=== PATIENT | female | born 1940 | race Caucasian/White ===

== ENCOUNTER 2017-03-05 12:58 | Emergency (ER) | payer MEDICARE, OTHER ==
[~2017-03-05] VITALS: Ht 175.2 cm; Wt 88.0 kg
--- NOTE | ~2017-03-05 | EKG ---
[place], [place] ELECTROCARDIOGRAM REPORT NAME: NESHA DOUGHERTY UNIT #: [id number] ROOM: DOCTOR: LINDA WILKINS,ROSALINDA BIRTHDATE: [birth year] DOS: 03/05/2017 TIME: 1339 hours. IMPRESSION: 1. Sinus rhythm. 2. Sinus tachycardia. 3. Nonspecific ST-T changes. 4. Normal QT interval. ROSALINDA MCKEON MD CM:EKGRPT:ELECTROCARDIOGRAM REPORT [id number] ROSALINDA MCKEON MD
[~2017-03-05 12:58] MED LIST: ACCOLATE20 MG PO; ADVAIR 100/501 EA INH; ADVAIR 500/501 E1 INH; ALBUTEROL SULFAT3 M2 INH; BACTRIM DS 8001 TA1 PO; BENZTROPINE MESY2 M1 PO; CARDIZEM CD120 M2 PO; CARTIA XT120 MG PO; CEFTIN500 M1 PO; CLEOCIN HCL300 MG PO; COUMADIN5 M2 PO; ELIQUIS5 M1 PO; GLYBURIDE AND M1 TA1 PO; GLYBURIDE AND M1 TA2 PO; HYDROCHLOROTHIA25 M1 PO; HYDROCODONE BIT1 T11 PO; IPRATROPIUM BR2.5 ML IH; KEFLEX 500 MG E2 CAP PO; LANTUS SOLOS100 U/M1 SC; LEVAQUIN750 M1 PO; LISINOPRIL10 M1 PO; LISINOPRIL20 MG PO; MUCINEX ER600 MG PO; NEBULIZER; NORVASC10 MG PO; PRAVASTATIN SOD40 MG PO; PREDNISONE10 MG PO; PREDNISONE5 MG PO; TESSALON PERLE100 MG PO; ZAFIRLUKAST20 M2 PO; ZITHROMAX250 MG PO; Zestril,Prinivi40 MG PO
[2017-03-05 13:31] LABS: BASO % 0.2 % (0.0-1.0); EOS % 0.7 % (1.0-4.0); HEMATOCRIT 37.1 % (37.0-47.0); HEMOGLOBIN 12.6 g/dl (12.0-16.0); LYMPH # 0.6 10*3/uL (1.3-4.4); LYMPH % 9.9 % (27.0-41.0); MEAN CELL VOLUME 85.9 fl (81.0-99.0); MEAN CORPUSCULAR HGB 29.2 pg (27.0-31.0); MEAN PLATELET VOLUME 9.7 fl (9.6-12.3); MONO # 0.8 10*3/uL (0.1-1.0); NEUT # 4.4 10*3/uL (2.3-7.9); PLATELET COUNT AUTOMATED 197 10*3/uL (130-400); RED BLOOD COUNT 4.32 10*6/uL (4.10-5.10); RED CELL DISTRI WIDTH 14.4 % (0-14.5); WHITE BLOOD COUNT 5.9 10*3/uL (4.8-10.8)
[2017-03-05 13:45] LABS: BUN 12 mg/dl (7-24); CHLORIDE 98 mmol/L (98-107); CREATININE 0.85 mg/dL (0.55-1.02); POTASSIUM 3.5 mmol/L (3.5-5.1); SODIUM 133 mmol/L (136-145)
[2017-03-05] MEDS ORDERED: ZOFRAN ODT4 MG SL (14:01)
== END 2017-03-05 14:26 | disposition home or self-care (01) ==
LOC: ED 12:58
PROVIDERS: Emergency Medicine
DX: E87.1 Hypo-osmolality and hyponatremia (principal); R05 Cough; R11.0 Nausea; E11.65 Type 2 diabetes mellitus with hyperglycemia; I48.91 Unspecified atrial fibrillation; J45.909 Unspecified asthma, uncomplicated; E78.5 Hyperlipidemia, unspecified; I10 Essential (primary) hypertension; Z98.890 Other specified postprocedural states; Z98.42 Cataract extraction status, left eye; Z98.41 Cataract extraction status, right eye; Z96.642 Presence of left artificial hip joint; Z87.01 Personal history of pneumonia (recurrent); Z79.899 Other long term (current) drug therapy

== ENCOUNTER 2017-03-21 11:47 | Inpatient (IN) | payer MEDICARE, OTHER ==
[~2017-03-21] VITALS: Ht 175.2 cm; Wt 87.1 kg
[2017-03-21] VITALS (7 sets, daily range): BP systolic 148–162; BP diastolic 61–93
--- NOTE | ~2017-03-21 | PR ---
[place], [place] PROGRESS NOTE NAME: NESHA DOUGHERTY UNIT #: [id number] ROOM: 408 DOCTOR: LEEROY CHU MD BIRTHDATE: [birth year] DOS: 03/23/2017 SUBJECTIVE: She has been noted reduction of the shortness of breath and coughing significantly after the bronchoscopy from yesterday. She has been comfortably resting on the bed at this time. Denies symptoms of acute chest pain. Denies symptoms of acute hemoptysis. OBJECTIVE: VITAL SIGNS: Normal temperature, respiratory rate 20, heart rate 84, blood pressure 118/50. Pulse oxygen saturation on room air 93% saturation. HEENT: No acute change. NECK: Supple. CARDIOVASCULAR: S1, S2 audible. LUNGS: The patient was noted without any crackles. Scattered expiratory wheezing. ABDOMEN: Soft, flat, nontender. Bowel sounds present. EXTREMITIES: Without any edema. LABORATORY DATA: CBC today - WBC count 21.5. The CMP this morning - BUN 29, glucose 386. Sodium 130. Culture of the bronchial washing preliminary noted as normal ashely. The Gram-stain from yesterday was reviewed as many white blood cells, moderate gram-positive cocci in pairs and chains, few gram-negative bacilli. IMPRESSION: 1. The patient who was being currently noted with severe impaction of mucus plug with acute exacerbation of bronchial asthma with reduction in respiratory symptom noted from yesterday. 2. Leukocytosis, steroid response. PLAN OF MANAGEMENT: Continuation of the patient's current plan of therapy with bronchodilators and oxygen supplementation. Reduction in Solu-Medrol dose today to 40 mg b.i.d. as well. Continuation of other treatment and plan of management because of severe illness noted on admission. The bronchial washing cultures will be monitored until tomorrow prior to making discharge disposition. [place], [place] PROGRESS NOTE NAME: NESHA DOUGHERTY UNIT #: [id number] ROOM: 408 DOCTOR: LEEROY CHU MD BIRTHDATE: [birth year] LEEROY NICOLE MD CM:PNTRANS [id number] LEEROY ANDRADE MD 03/24/17 0007 interface
--- NOTE | ~2017-03-21 | PROC NOTE ---
[place], [place] PROCEDURE NOTE NAME: NESHA DOUGHERTY UNIT #: [id number] ROOM: 408 DOCTOR: BONNIE ANDRADE MD,LEEROY BIRTHDATE: [birth year] DOS: 03/22/2017 PRIMARY CARE AND ATTENDING: Hospitalist services. PREOPERATIVE DIAGNOSES: The patient has severe cough with multiple impacted mucus plug in the airway was suspected in the CT scan and clinically. POSTOPERATIVE DIAGNOSES: Removal of multiple plugs of mucus in the endobronchial tree, major in the lower lungs than the other parts of the bronchial subsegments. PROCEDURE DESCRIPTION: Informed consent was obtained for the patient. She was brought to the OR and placed in supine position. Conscious sedation was administered by the Anesthesia Department. After achieving proper sedation, airway introduced into the mouth. Bronchoscope advanced to the airway into laryngeal area. Epiglottis and vocal cords were seen. Vocal cords were seen yellowish in color and moving symmetrically with movements. The bronchoscope advanced to vocal cord and tracheal lumen. Tracheal lumen noted with moderate amount of thick mucus secretion with some purulent secretion mixture that was suctioned out to the lita level. Right and left endobronchial tree was systematically examined. Large plugs and mucus were present in the lower lobe of endobronchial tree and moderate size mucus plugs were present. Remaining endobronchial tree with clear secretions that were suctioned out clear with help of normal saline wash. All the mucus plugs were extracted as well. The patient tolerated the procedure very well without any difficulty. Postoperative findings will be discussed with the patient once the patient recovers from the effects of acute sedation. LEEROY NICOLE MD CM:PROCNOTE:PROCEDURE NOTE [id number] LEEROY ANDRADE MD
--- NOTE | ~2017-03-21 | PR ---
[place], [place] PROGRESS NOTE NAME: NESHA DOUGHERTY UNIT #: [id number] ROOM: 408 DOCTOR: BONNIE ANDRADE MD,LEEROY BIRTHDATE: [birth year] DOS: 03/24/2017 SUBJECTIVE: The patient was noted to be comfortable at this time without any acute distress. Coughing continued to resolve, not completely improved, but markedly decreased. There were no symptoms of acute chest pain. Shortness of breath was mild with exertion, but overall improvement was noted. There were no symptoms of wheezing described. There were no symptoms of chest pain at this time. OBJECTIVE: VITAL SIGNS: For the patient, which were recorded showed the temperature as normal. The respiratory rate recorded as 20, heart rate 78, and blood pressure 136/57. HEENT: Shows head was atraumatic. Eyes nonicterus. NECK: Supple. CARDIOVASCULAR SYSTEM: S1 and S2 is audible. LUNGS: Without any wheezing or crackles at present time. ABDOMEN: Soft and nontender. EXTREMITIES: Without any pedal edema, clubbing, or cyanosis. IMPRESSION: Resolving acute respiratory status with improvement significantly after bronchoscopy and removing mucus plug for exacerbation of bronchial asthma. Culture of the bronchial washing was essentially noted as normal ashely. PLAN OF MANAGEMENT: The patient will be discharged home today on oral antibiotic Zithromax, which has been already sent to the pharmacy and use of tapering prednisone. Outpatient followup recommended in 2 week post-discharge. Further assessment in the office. She was advised to continue previous all home medications without any changes. LEEROY NICOLE MD CM:PNTRANS [id number] LEEROY ANDRADE MD 03/24/17 1837 interface
--- NOTE | ~2017-03-21 | CON ---
[place], [place] REPORT OF CONSULTATION NAME[facility]OUGHERTY [id number] UNIT #: [id number] ROOM: 408 DOCTOR: LEEROY CHU MD BIRTHDATE: [birth year] DOS: 03/22/2017 PULMONARY CONSULTATION, EVALUATION, AND MANAGEMENT CONSULTATION REQUESTED BY: Hospitalist services. REASON FOR CONSULTATION: For assessment of current abnormal respiratory symptom. HISTORY OF PRESENT ILLNESS: A 77-year-old white female who has been known to me from the past. She was seen in my office yesterday, as the patient developed symptoms of increased shortness of breath, which has been getting progressively worse. The symptoms of shortness of breath has been noted severe for the patient and occurring at rest. She was also noted excessive chest congestion, unable to expectorate sputum. She does complain of tightness in the chest, but there was no chest pain. She does have symptoms of wheezing at times as well. The wheezing occurs for this patient with exertion. As the patient was seen, she was noted significant tachypneic and with shortness of breath with mild wheezing. The patient noted with chest auscultation, sent to the Emergency Room for further assessment of the current symptoms, especially to rule out pulmonary embolism. She was seen in the Emergency Room yesterday. CTA of the chest of the patient was done that did rule out the possibility of pulmonary embolism and mucous impaction of the endobronchial tree was suspected. The patient has been currently noted n.p.o. past midnight for bronchoscopy that was planned to be done today. REVIEW OF SYSTEMS: CONSTITUTIONAL: She does report symptoms of progressive fatigue and tiredness. There were symptoms of fever or chills reported. EYES: Denies any burning, redness, or tenderness. EARS, NOSE, AND THROAT SYMPTOMS: No sore throat, hoarseness, otalgia, postnasal drainage, or epistaxis. CARDIOVASCULAR: Denies angina pain, edema, or pain of the lower extremity. GASTROINTESTINAL: Denies dysphagia, nausea, vomiting, diarrhea, abdominal pain, hematemesis, melena, or abnormal weight loss. GENITOURINARY: No dysuria, suprapubic pain, or hematuria. MUSCULOSKELETAL: Denies any acute joint pain, redness, or tenderness. SKIN: No lesions or rashes. Remaining systems were reviewed with the patient, they were noted all negative. PAST MEDICAL HISTORY: 1. The patient was known with history of uncomplicated severe persistent bronchial asthma. 2. Hypercholesterolemia. 3. Type 2 diabetes mellitus. 4. Essential hypertension. PAST SURGICAL HISTORY: 1. Left hip replacement. 2. Colonoscopy. [place], [place] REPORT OF CONSULTATION NAME: NESHA DOUGHERTY UNIT #: [id number] ROOM: [facility] DOCTOR: NASRA CHU MDM BIRTHDATE: [birth year] 3. Bilateral cataract extraction, lens implantation. 4. Therapeutic bronchoscopy done in 2016. SOCIAL HISTORY: She was noted nonsmoker lifetime, currently , has one child. Denies history of alcohol use or illicit drug use. FAMILY HISTORY: Father at the age of 60 years of accident. Mother at the age of 50 years from complication of cancer in the bones. MEDICATIONS: Current administered medications were noted as use of trazodone, simvastatin, vitamin D, Cardizem-CD, zafirlukast, hydrochlorothiazide, lisinopril, Lovenox for DVT prophylaxis, Solu-Medrol 60 mg q.8 hours, doxycycline for this patient intravenously, and IV Rocephin. The patient was also getting some other p.r.n. medications. DRUG ALLERGIES: Noted as no known drug allergies. PHYSICAL EXAMINATION: GENERAL: A 77-year-old white female patient, who has been noted currently awake and alert without any acute distress. VITAL SIGNS: The patient's height was recorded by the nursing staff as 5 feet 9 inches and weight of 192 pounds. The vital signs of the patient, which has been recorded showed the temperature noted normal in the last 24 hours, respiratory rate 18-17, heart rate of 83 and 103 noted on admission. The blood pressure of the patient noted as 172/90 on admission and this morning was noted as 138/66. Pulse oxygen saturation for the patient on room air was 93% saturation. HEENT: Examination of the head was atraumatic. Eyes nonicterus. NECK: Supple. CARDIOVASCULAR: S1, S2 audible. LUNGS: The patient was noted with moderate reduction of the breath sounds in the lungs were noted bilaterally with expiratory wheezing, moderate. There were no crackles. ABDOMEN: Flat, soft, and nontender. Bowel sounds present. EXTREMITIES: The patient has no edema. MUSCULOSKELETAL: No deformities. SKIN: No lesions or rashes. CENTRAL NERVOUS SYSTEM: Cranial nerves 2-12 intact. No focal deficit. LABORATORY DATA: Last PT and PTT yesterday normal. CBC of the patient on 03/21/2017, WBC count 12.7, remaining CBC was completely normal. The troponin of the patient yesterday were noted as normal, in addition, 2 sets were normal as well yesterday. CBC this morning, WBC count 14,000, hemoglobin 11.2, hematocrit 33.7, and normal platelet count. CMP of the patient this morning, glucose 375, BUN and creatinine normal, and sodium 134. The chest x-ray of the patient that was done yesterday was noted with evidence of a possibility of infiltration in the left lower lobe. CT of the chest of the patient that was done was personally reviewed shows a significant mucus impaction noted in the lower lobe endobronchial tree subsegment with mucocele formation in the right and the lower lobe. The finding was noted much greater in the left lower than the right lower lobe. There was no abnormal pulmonary nodules of the patient [place], [place] REPORT OF CONSULTATION NAME: NESHA DOUGHERTY UNIT #: [id number] ROOM: 408 [facility] [birth year] noted or any acute infiltration. IMPRESSION: 1. The patient who has been currently admitted to the hospital noted with acute exacerbation of bronchial asthma with severe coughing and mucus impaction of this patient noted. There was no evidence of acute pneumonia. Because of severe mucus impaction for this patient with mucus, possibility of allergic bronchopulmonary aspergillosis would be considered in the differential diagnosis. 2. The patient with uncontrolled diabetes mellitus with the use of current corticosteroids and history of type 2 diabetes mellitus as well. History of essential hypertension and other medical illnesses as noted. PLAN OF TREATMENT: Proceed with bronchoscopy as discussed with the patient. She is already n.p.o. past midnight. The bronchodilator will be continued on current dose of corticosteroids, reduction will be started; hopefully, after the bronchoscopy. Bronchoscopy will help to remove the current impaction of the mucus plug and improving the current mucocele formation of the patient in the lung and endobronchial tree. Other supportive therapy and plan of management. Oxygen supplementation in case of oxygen desaturation. Other supportive therapy, plan of management, and care plan. Additional treatment continued to be give the patient based on progression of her illness. LEEROY NICOLE MD CM:CONSTR:REPORT OF CONSULTATION 1205 03/23/17 0009 interface
[~2017-03-21 11:47] MED LIST changes: +ZOFRAN ODT4 MG SL
[2017-03-21] MEDS ORDERED: PROAIR HFA8.5 GM INH (12:26)
[2017-03-21 12:53] LABS: HEMATOCRIT 36.6 % (37.0-47.0); MEAN CELL VOLUME 88.8 fl (81.0-99.0); MEAN CORPUSCULAR HGB 29.1 pg (27.0-31.0); MEAN CORPUSCULAR HGB CONC 32.8 g/dl (33.0-37.0); MEAN PLATELET VOLUME 9.5 fl (9.6-12.3); PLATELET COUNT AUTOMATED 281 10*3/uL (130-400); RED BLOOD COUNT 4.12 10*6/uL (4.10-5.10); RED CELL DISTRI WIDTH 14.6 % (0-14.5); WHITE BLOOD COUNT 12.7 10*3/uL (4.8-10.8)
[2017-03-21 13:09] LABS: ACT PARTIAL THROMBO TIME 20.2 SECONDS (20.8-31.5); INTERNATIONAL NORM RATIO 0.9 (2.0-3.5)
[2017-03-21 13:10] LABS: TOTAL CELLS COUNTED 100 #CELLS
[2017-03-21 13:11] LABS: ALBUMIN 3.9 gm/dl (3.1-4.5); ALKALINE PHOSPHATASE 91 U/L (45-117); BUN 19 mg/dl (7-24); CHLORIDE 105 mmol/L (98-107); CREATININE 0.95 mg/dL (0.55-1.02); POTASSIUM 3.6 mmol/L (3.5-5.1); SGOT/AST 9 IU/L (3-35); SGPT/ALT 21 U/L (12-78); SODIUM 139 mmol/L (136-145); TOTAL PROTEIN 6.8 gm/dL (6.4-8.2)
[2017-03-21 13:12] LABS: TROPONIN I < 0.015 ng/ml (<0.045)
[2017-03-21 13:13] LABS: PLATELET SUFFICIENCY NORMAL (NORMAL)
[2017-03-21] MEDS ORDERED: OSTERA TABLET1 EACH PO (15:58)
[2017-03-21] MEDS ORDERED: TRAZODONE50 MG PO (15:58)
[2017-03-22] VITALS (9 sets, daily range): BP systolic 110–158; BP diastolic 53–82
[2017-03-22 06:46] LABS: HEMATOCRIT 33.7 % (37.0-47.0); HEMOGLOBIN 11.2 g/dl (12.0-16.0); MEAN CELL VOLUME 88.5 fl (81.0-99.0); MEAN CORPUSCULAR HGB 29.4 pg (27.0-31.0); MEAN CORPUSCULAR HGB CONC 33.2 g/dl (33.0-37.0); MEAN PLATELET VOLUME 9.7 fl (9.6-12.3); PLATELET COUNT AUTOMATED 232 10*3/uL (130-400); RED BLOOD COUNT 3.81 10*6/uL (4.10-5.10); RED CELL DISTRI WIDTH 14.5 % (0-14.5)
[2017-03-22 06:59] LABS: ALBUMIN 3.5 gm/dl (3.1-4.5); ALKALINE PHOSPHATASE 85 U/L (45-117); BUN 22 mg/dl (7-24); CHLORIDE 101 mmol/L (98-107); CHOLESTEROL 185 mg/dL (<200); CREATININE 1.01 mg/dL (0.55-1.02); FREE T4 1.11 ng/dl (0.76-1.46); HDL CHOLESTEROL 79 mg/dl (40-60); LDL CHOLESTEROL 85 mg/dL (9-159); PHOSPHOROUS 4.1 mg/dL (2.5-4.9); POTASSIUM 4.5 mmol/L (3.5-5.1); SGOT/AST 7 IU/L (3-35); SGPT/ALT 20 U/L (12-78); SODIUM 134 mmol/L (136-145); TOTAL PROTEIN 6.3 gm/dL (6.4-8.2); TRIGLYCERIDES 105 mg/dl (<150); VLDL CHOLESTEROL 21 mg/dL (6-40)
[2017-03-22 07:07] LABS: THYROID STIM HORMONE (HS) 0.426 uIU/ml (0.358-4.75)
[2017-03-22 07:08] LABS: TOTAL CELLS COUNTED 100 #CELLS
[2017-03-22 07:09] LABS: BURR CELLS FEW; PLATELET SUFFICIENCY NORMAL (NORMAL)
[2017-03-22 08:28] LABS: VITAMIN D, 25-HYDROXY 20.9 ng/mL (30-100)
[2017-03-23] VITALS: BP 126/63
[2017-03-23 06:26] LABS: HEMATOCRIT 30.7 % (37.0-47.0); HEMOGLOBIN 10.3 g/dl (12.0-16.0); MEAN CORPUSCULAR HGB 29.5 pg (27.0-31.0); MEAN CORPUSCULAR HGB CONC 33.6 g/dl (33.0-37.0); PLATELET COUNT AUTOMATED 216 10*3/uL (130-400); RED BLOOD COUNT 3.49 10*6/uL (4.10-5.10); RED CELL DISTRI WIDTH 14.5 % (0-14.5); WHITE BLOOD COUNT 21.5 10*3/uL (4.8-10.8)
[2017-03-23 06:35] LABS: ALBUMIN 3.2 gm/dl (3.1-4.5); CREATININE 1.11 mg/dL (0.55-1.02)
[2017-03-23 06:36] LABS: TOTAL PROTEIN 5.7 gm/dL (6.4-8.2)
[2017-03-23 06:59] LABS: BURR CELLS FEW; PLATELET SUFFICIENCY NORMAL (NORMAL); TOTAL CELLS COUNTED 100 #CELLS
[2017-03-23 08:00] VITALS: BP 121/62
[2017-03-23 12:00] VITALS: BP 118/50
[2017-03-23 16:00] VITALS: BP 122/58
[2017-03-23 16:08] LABS: ACID FAST SMEAR Negative (.); ACID FAST SPEC PROCESSING Concentration (.)
[2017-03-23 20:00] VITALS: BP 114/49
[2017-03-24] VITALS: BP 100/37
[2017-03-24 06:01] LABS: HEMATOCRIT 29.9 % (37.0-47.0); HEMOGLOBIN 10.1 g/dl (12.0-16.0); MEAN CELL VOLUME 87.9 fl (81.0-99.0); MEAN CORPUSCULAR HGB 29.7 pg (27.0-31.0); MEAN CORPUSCULAR HGB CONC 33.8 g/dl (33.0-37.0); MEAN PLATELET VOLUME 10.3 fl (9.6-12.3); PLATELET COUNT AUTOMATED 199 10*3/uL (130-400); RED CELL DISTRI WIDTH 14.3 % (0-14.5); WHITE BLOOD COUNT 15.2 10*3/uL (4.8-10.8)
[2017-03-24 06:17] LABS: ALKALINE PHOSPHATASE 75 U/L (45-117); BUN 35 mg/dl (7-24); CHLORIDE 100 mmol/L (98-107); CREATININE 1.05 mg/dL (0.55-1.02); POTASSIUM 4.3 mmol/L (3.5-5.1); SGOT/AST 17 IU/L (3-35); SGPT/ALT 31 U/L (12-78); SODIUM 131 mmol/L (136-145); TOTAL PROTEIN 5.5 gm/dL (6.4-8.2)
[2017-03-24 07:34] LABS: PLATELET SUFFICIENCY NORMAL (NORMAL); TOTAL CELLS COUNTED 100 #CELLS
[2017-03-24 08:00] VITALS: BP 136/72
[2017-03-24 12:00] VITALS: BP 136/57
[2017-03-24] MEDS ORDERED: VIBRAMYCIN100 MG PO (12:32)
== END 2017-03-24 13:01 | disposition home or self-care (01) | DRG 682 ==
LOC: ED 11:47 → EDHOLD 15:42 → 4E 15:42
PROVIDERS: Emergency Medicine; Internal Medicine; Internal Medicine Critical Care Medicine
PROC: 0BC68ZZ Extirpation of Matter from Right Lower Lobe Bronchus, Via Natural or Artificial Opening Endoscopic (ICD-10-PCS; principal; 2017-03-22)
PROC: 0BC38ZZ Extirpation of Matter from Right Main Bronchus, Via Natural or Artificial Opening Endoscopic (ICD-10-PCS; principal; 2017-03-22)
PROC: 0BC88ZZ Extirpation of Matter from Left Upper Lobe Bronchus, Via Natural or Artificial Opening Endoscopic (ICD-10-PCS; principal; 2017-03-22)
PROC: 0BC98ZZ Extirpation of Matter from Lingula Bronchus, Via Natural or Artificial Opening Endoscopic (ICD-10-PCS; principal; 2017-03-22)
PROC: 0BC78ZZ Extirpation of Matter from Left Main Bronchus, Via Natural or Artificial Opening Endoscopic (ICD-10-PCS; principal; 2017-03-22)
PROC: 0BC48ZZ Extirpation of Matter from Right Upper Lobe Bronchus, Via Natural or Artificial Opening Endoscopic (ICD-10-PCS; principal; 2017-03-22)
PROC: 0BCB8ZZ Extirpation of Matter from Left Lower Lobe Bronchus, Via Natural or Artificial Opening Endoscopic (ICD-10-PCS; principal; 2017-03-22)
PROC: 0BC58ZZ Extirpation of Matter from Right Middle Lobe Bronchus, Via Natural or Artificial Opening Endoscopic (ICD-10-PCS; principal; 2017-03-22)
DX: N17.0 Acute kidney failure with tubular necrosis (principal); J18.9 Pneumonia, unspecified organism; T17.590A Other foreign object in bronchus causing asphyxiation, initial encounter; E11.65 Type 2 diabetes mellitus with hyperglycemia; J45.901 Unspecified asthma with (acute) exacerbation; R65.10 Systemic inflammatory response syndrome (SIRS) of non-infectious origin without acute organ dysfunction; E83.41 Hypermagnesemia; I48.91 Unspecified atrial fibrillation; E87.1 Hypo-osmolality and hyponatremia; J98.11 Atelectasis; D72.810 Lymphocytopenia; E66.3 Overweight; I10 Essential (primary) hypertension; Z96.642 Presence of left artificial hip joint; E78.00 Pure hypercholesterolemia, unspecified; Z96.1 Presence of intraocular lens; X58.XXXA Exposure to other specified factors, initial encounter; Z80.6 Family history of leukemia; Z68.28 Body mass index [BMI] 28.0-28.9, adult; Z79.899 Other long term (current) drug therapy; Z83.3 Family history of diabetes mellitus; Z98.42 Cataract extraction status, left eye; Z98.41 Cataract extraction status, right eye; Y93.89 Activity, other specified; Y92.89 Other specified places as the place of occurrence of the external cause; Y99.8 Other external cause status; Z79.84 Long term (current) use of oral hypoglycemic drugs

== ENCOUNTER 2017-03-30 13:22 | Inpatient (IN) | payer MEDICARE, OTHER ==
[2017-03-30] VITALS (40 sets, daily range): BP systolic 66–130; BP diastolic 23–78
[~2017-03-30] VITALS: Ht 175.2 cm; Wt 87.1 kg
--- NOTE | ~2017-03-30 | PR ---
[place], [place] PROGRESS NOTE NAME: NESHA DOUGHERTY UNIT #: [id number] ROOM: [facility] DOCTOR: LEEROY CHU MD BIRTHDATE: [birth year] DOS: 04/02/2017 PULMONARY PROGRESS NOTE SUBJECTIVE: She has been noted comfortable at this time, still noted some shortness of breath, cough has been noted [id number]-nw-phnoytby, currently remains nonproductive. Denies symptoms of chest pain or hemoptysis. Denies symptoms of abdominal pain. The patient denies any symptoms of nausea or vomiting. Mild elevation of pulmonary artery pressures was also noted. She was noted low grade fever as well. The patient denies any symptoms of headache or diplopia. Denies any focal neurologic deficit. Denies dysuria, suprapubic pain, or hematuria. Remaining systems were reviewed with the patient. They were noted all negative. PHYSICAL EXAMINATION: VITAL SIGNS: The temperature curve has been noted gradually decreased with maximum temperature 100.2 degrees Fahrenheit noted. Respiratory rate ranges between 16 and 20, heart rate 82 and 72, blood pressure 160/77 and 87/48. The atrial fibrillation currently noted with a normal sinus rhythm this morning. HEENT: Head was atraumatic. Eyes nonicterus. NECK: Supple. CARDIOVASCULAR: S1, S2 audible. LUNGS: Noted with moderate reduced breath sounds for the patient noted with crackles at the left lung base. ABDOMEN: Soft, flat, and nontender. Bowel sounds present. EXTREMITIES: Without any edema. VISIBLE SKIN: No lesions or rashes. MUSCULOSKELETAL: No deformities. CENTRAL NERVOUS SYSTEM: Intact. LABORATORY DATA: The stool for C. diff toxin reviewed and they were noted negative. The CBC for the patient that was done this morning shows hemoglobin 8.4, hematocrit 26.2, and platelet count 124,000. CMP of the patient this morning, glucose 55, BUN normal, creatinine normal, and potassium 3.3. IMPRESSION: 1. The patient has been noted significant resolution of severe leukocytosis. 2. Acute bilateral pneumonia, cause of current leukocytosis infection. 3. Atrial fibrillation noted currently controlled range as well. 4. There was no evidence of Clostridium difficile colitis. 5. The patient with bronchial asthma as well. PLAN OF MANAGEMENT: Ordered the chest x-ray for the patient to be done tomorrow morning. Discontinue the Levaquin. Continue the patient on meropenem and vancomycin antibiotics. Presumptive treatment for the patient's gram-positive and gram-negative infection. Ambulation has encouraged. The patient has been currently getting prednisone 40 mg b.i.d., dose will be gradually decreased for the management of bronchial asthma. Other supportive therapy and plan of management as well. The patient was started on Xarelto 15 mg b.i.d. for the long-term anticoagulation dose. Supportive care, other therapy, plan of [place], [place] PROGRESS NOTE NAME: NESHA DOUGHERTY UNIT #: [id number] ROOM: [facility] DOCTOR: BONNIE ANDRADE MD,LEEROY BIRTHDATE: [birth year] management, and treatments. Usual care. Additional treatment changes will be done based on progression of the illness. Continue to titrate oxygen supplementation to maintain a pulse oxygen saturation of 92% on 2 liters. LEEROY NICOLE MD CM:PNTRANS [id number] [id number] LEEROY ANDRADE MD 04/02/17 2334 interface
--- NOTE | ~2017-03-30 | PR ---
[place], [place] PROGRESS NOTE NAME: NESHA DOUGHERTY UNIT #: [id number] ROOM: [facility] DOCTOR: BONNIE ANDRADE MD,LEEROY BIRTHDATE: [birth year] DOS: 04/01/2017 SUBJECTIVE: The patient has been gradually weaned off the vasopressor therapy. The patient's shortness of breath has been improving. Cough has been noted intermittently, mild to moderate without any sputum expectoration. Denies symptoms of chest pain. The patient rather complained of general weakness and fatigue. Atrial fibrillation with rapid ventricular response, noted this morning, which has been the management for the patient was started by the Cardiology Services. She denies symptoms of nausea, vomiting, diarrhea, hematuria, abdominal pain, dizziness or headache. PHYSICAL EXAMINATION: VITAL SIGNS: Elevation of temperature 101 degrees Fahrenheit, previous noted 99.7 degree Fahrenheit. Respiratory rate recorded at 14-21, heart rate of 167, blood pressure 95/57-103/46. The pulse oxygen saturation on 3 liters nasal cannula 98% saturation. HEENT: Shows no acute change. NECK: Supple. CARDIOVASCULAR: S1, S2 audible. LUNGS: Basilar crackles without any wheezing. ABDOMEN: Soft, nontender. EXTREMITIES: Without any acute edema. VISIBLE SKIN: No lesions or rashes. MUSCULOSKELETAL: Without any deformities. CENTRAL NERVOUS SYSTEM: No focal deficits. Cranial nerves 2-12 intact. LABORATORY DATA: CBC today: WBC count 15.3, hemoglobin 9.5, hematocrit 28.3, platelet count 146,000. The CMP of patient this morning, normal BUN and creatinine. Potassium 3.2, mildly decreased albumin 2.4, total protein of 5.1. Remaining systems were reviewed, they were noted all negative. FINAL IMPRESSION: 1. The patient has been noted bilateral basilar pneumonia is to treat her for gram-positive and gram-negative coverage antibiotic. 2. Acute atrial fibrillation with rapid ventricular past history of atrial fibrillation noted previously as well. 3. History of bronchial asthma without any acute exacerbation. 4. Resolving hypotension, vasopressor has been discontinued yesterday evening. PLAN OF MANAGEMENT: Continue antibiotics, bronchodilators, and oxygen supplementation. Monitor culture results. The patient has been receiving intravenous meropenem, vancomycin, and Levaquin. The cultures will be monitored and de-escalation of antibiotics will be ordered accordingly. [place], [place] PROGRESS NOTE NAME: NESHA DOUGHERTY UNIT #: [id number] ROOM: [facility] DOCTOR: LEEROY CHU MD BIRTHDATE: [birth year] LEEROY NICOLE MD CM:PNTRANS [id number] LEEROY ANDRADE MD 04/02/17 0113 interface
--- NOTE | ~2017-03-30 | PR ---
[place], [place] PROGRESS NOTE NAME: NESHA DOUGHERTY UNIT #: [id number] ROOM: 408 DOCTOR: LEEROY CHU MD BIRTHDATE: [birth year] DOS: 04/05/2017 SUBJECTIVE: The patient was seen and examined on 04/05/2017. She was still noted with shortness of breath. The patient denies symptoms of chest pain or hemoptysis. She has been noted with mild to moderate edema of the lower extremity as well. Denies symptoms of headache or diplopia. Denies symptoms of abdominal pain. OBJECTIVE: VITAL SIGNS: Recorded, shows the normal temperature, recorded respiratory rate 18, heart rate 81, blood pressure 140/67. Intake for the patient is 1900 mL, output 2100 mL. Pulse ox saturation on room air 98% saturation. HEENT: Showed no acute change. NECK: Supple. CARDIOVASCULAR: S1, S2 audible. LUNGS: The patient was noted without any wheeze or crackles at this time. ABDOMEN: Soft, nontender. EXTREMITIES: 2+ pitting edema. LABORATORY DATA: Blood culture of the patient, which was done on 03/30/2017 showed no bacterial growth. BMP today was noted with normal BUN and creatinine. CBC of the patient with mild anemia. IMPRESSION: 1. The patient with acute pneumonia, seemed to be resolving progressively but noted edema of lower extremities. 2. Acute exacerbation of chronic obstructive pulmonary disease. 3. Shortness of breath, still noted as well. PLAN OF MANAGEMENT: Chest x-ray of the patient for today will be ordered. Continuation of the bronchodilator treatment plan and management. Usual care. Monitor respiratory status of the patient closely. Any changes in the medical management after the chest x-ray if necessary will be done accordingly. [place], [place] PROGRESS NOTE NAME: NESHA DOUGHERTY UNIT #: [id number] ROOM: 408 DOCTOR: LEEROY CHU MD BIRTHDATE: [birth year] LEEROY NICOLE MD CM:PNTRANS 1352 [id number] LEEROY ANDRADE MD 04/06/17 0004 interface
--- NOTE | ~2017-03-30 | PR ---
[place], [place] PROGRESS NOTE NAME: NESHA DOUGHERTY UNIT #: [id number] ROOM: [facility] DOCTOR: WALDO WILKINS,FRANCISCO Ngo BIRTHDATE: [birth year] DOS: 04/02/2017 ADDENDUM After reviewing the chart, labs and microbiology, I agree with the above plans as described. We will follow the patient up clinically and adjust accordingly. FRANCISCO HAAS MD CM:PNTRANS [phone] FRANCISCO HAAS MD 04/02/172052 interface
--- NOTE | ~2017-03-30 | PR ---
[place], [place] PROGRESS NOTE NAME: NESHA DOUGHERTY UNIT #: [id number] ROOM: 408 DOCTOR: BONNIE ANDRADE MDLEEROY BIRTHDATE: [birth year] DOS: 04/04/2017 SUBJECTIVE: The patient was still noted with symptoms of shortness of breath for the patient that has been noted at rest as well with some increased from yesterday. She was given Lasix 40 mg daily. The coughing has been subsiding gradually. There was no wheezing or chest pain reported by the patient. Shortness of breath worsens with physical activity. The patient was noted with adequate diuresis for the patient, negative for balance 1450 mL. She denies symptoms of abdominal pain. Denies symptoms of nausea, vomiting, diarrhea or any abdominal pain. Dizziness, headache. General weakness, fatigue, which are partially improved from admission. Denies symptoms of edema or pain of the lower extremities or palpitations. Remaining systems were reviewed. The patient, they were noted all negative. OBJECTIVE: VITAL SIGNS: For the patient, which has been recorded showed the temperature noted normal, respiratory rate 20, heart rate of 69-75, blood pressure 142/65-140/65. Pulse ox at 97% saturation noted on room air. Intake for the patient is 1700 mL, was 3150, negative fluid balance of 1450 mL recorded. HEENT: Examination shows head was atraumatic. Eyes nonicterus. NECK: Supple. CARDIOVASCULAR: S1, S2 is audible. LUNGS: The patient was noted with moderate decreased breath sounds, basilar crackles. ABDOMEN: Soft, nontender. EXTREMITIES: Without any acute edema at this time. VISIBLE SKIN: No lesions or rashes. CENTRAL NERVOUS SYSTEMS: Intact. MUSCULOSKELETAL: Without any acute deformities. LABORATORY DATA: BMP done this morning, patient noted normal BUN and creatinine. Potassium 3.4, mildly decreased. IMPRESSION: 1. The patient currently noted with bilateral lower lobe pneumonia with persistent shortness breath at this time. 2. Resolution of the atrial fibrillation with rapid ventricular response. The echocardiogram of the patient of the right heart was not adequately visualized. The patient pulmonary artery pressures could not be determined, but normal left ventricle ejection fraction noted. Echocardiogram that was done to 03/22/2017. 3. The patient is aware debility as well. 4. Mild hyperkalemia secondary to diuretics. PLAN OF MANAGEMENT: Another dose of Lasix will be given. The patient will be given potassium supplement as well. A 40 mEq potassium was given this morning. Repeat another chest x-ray in the morning. Continue to maximize the cardiopulmonary therapy. Usual care. Ambulation, the patient would be encouraged. Assessment with 6-minute walk test for the patient to assess the patient's shortness of breath and any exertional hypoxia. [place], [place] PROGRESS NOTE NAME: NESHA DOUGHERTY Cesar UNIT #: [id number] ROOM: [facility] DOCTOR: LEEROY CHU MD BIRTHDATE: [birth year] LEEROY NICOLE MD CM:TOMÁS [id number] LEEROY ANDRADE MD 04/05/17 0203 interface
--- NOTE | ~2017-03-30 | PR ---
[place], [place] PROGRESS NOTE NAME: NESHA DOUGHERTY UNIT #: [id number] ROOM: 408 DOCTOR: BONNIE ANDRADE MD,LEEROY BIRTHDATE: [birth year] DOS: 04/06/2017 PULMONARY PROGRESS NOTE SUBJECTIVE: She is still noted edema of the bilateral lower extremity, which is noted moderate. Symptoms of chest pain and shortness of breath have been noted on admission, but the patient currently is noted with reduction in symptoms of shortness of breath. There is no chest pain. Mild cough is noted. OBJECTIVE: VITAL SIGNS: Normal temperature, respiratory rate 18, heart rate 79, blood pressure 154/59. The pulse ox saturation on room air 98% saturation. HEENT: Examination shows no acute change. NECK: Supple. CARDIOVASCULAR: S1, S2 is audible. LUNGS: The patient is noted without any wheezing. There were no crackles. ABDOMEN: Soft, nontender. EXTREMITIES: Show 2+ pitting edema. LABORATORY DATA: CBC: Hemoglobin 9.7, WBC count was normal, platelet count was normal. BMP of the patient this morning: Glucose 119, BUN and creatinine were normal. IMPRESSION: The patient has been currently noted with bilateral persistent edema of the lower extremities with resolving acute pneumonia with current antibiotics. PLAN OF MANAGEMENT: Order ultrasound of bilateral lower extremities to rule out deep venous thrombosis. The patient has been given 40 mg IV Lasix by the primary care attending of the patient. Continue with the previous treatment, plan of management previously in progress, usual care. LEEROY NICOLE MD CM:PNTRANS [id number] LEEROY ANDRADE MD 04/07/17 0312 interface
--- NOTE | ~2017-03-30 | PR ---
[place], [place] PROGRESS NOTE NAME: [facility]OUGHERTY [id number] UNIT #: [id number] ROOM: [facility] DOCTOR: ESTER TORREZ,MAY BIRTHDATE: [birth year] DOS: 04/02/2017 SUBJECTIVE: The patient is a 77-year-old female who is being followed for sepsis. She was admitted on the with sepsis, leukocytosis, hypotension. She has since significantly improved. She has been weaned off pressors. Her WBCs have gone from 37.6 initially down to 9.7. She has received empiric antibiotics of vancomycin, Merrem and Levaquin. CT of her chest does demonstrate a left lower lobe infiltrate, did review the films. Dr. Springer appropriately stopped her Levaquin earlier today. She was hospitalized prior to this hospitalization, had only been home a few days, which would render this likely healthcare-associated pneumonia. Her blood cultures remained sterile. Her urine culture has 25,000 colonies of light yeast. Her MRSA screen is negative. C. diff negative. She is alert and oriented, states she is still having some shortness of breath, but other than that feeling better. Her max temperature in the last 24 hours was 100.2 last night. No nausea or vomiting. No diarrhea. No rash or itch. No shaking chills. Does have lower extremity edema. Good appetite. LABORATORY DATA: Showed WBC is 9.7, platelets 124. BUN 11, creatinine 0.72. LFTs within normal limits. OBJECTIVE: VITAL SIGNS: Temperature 98.7, pulse 84, respirations 21, BP 158/74. GENERAL: A 77-year-old female, in no acute distress. HEAD, EYES, EARS, NOSE AND THROAT: Normocephalic. No thrush. LUNGS: With few rales in left base. Respirations even and unlabored, on O2 via nasal cannula. HEART: Regular rhythm. No murmur appreciated. ABDOMEN: Soft, obese, nontender. EXTREMITIES: +2 edema of bilateral lower extremities. She has a right IJ in place. Dressing dry and intact. SKIN: Warm, pale, dry, free of rashes. ASSESSMENT: Sepsis, which is resolving, due to pneumonia, likely healthcare-associated pneumonia. PLAN: Her MRSA screen is negative. Her Levaquin was already appropriately stopped earlier today per Dr. Springer. We can also stop the vancomycin. We have been unable to obtain culture as the patient's cough is nonproductive. Continue the Merrem. Case discussed with Dr. Francisco Haas. MAY SHAN NORMAN [place], [place] PROGRESS NOTE NAME: NESHA DOUGHERTY UNIT #: [id number] ROOM: [facility] DOCTOR: ESTER TORREZ BIRTHDATE: [birth year] FRANCISCO HAAS MD CM:PNTRANS [phone] [id number] ESTER TORREZ 04/03/17 0519 interface
--- NOTE | ~2017-03-30 | CON ---
[place], [place] REPORT OF CONSULTATION [id number] UNIT #: [id number] ROOM: [facility] DOCTOR: LEEROY CHU MD BIRTHDATE: [birth year] DOS: 03/31/2017 PULMONARY CONSULTATION, EVALUATION AND MANAGEMENT HISTORY OF PRESENT ILLNESS: The patient is a 77-year-old white female known to me. The patient has been admitted to the hospital recently and managed. She has been noted with acute exacerbation of chronic obstructive pulmonary disease, acute tracheobronchitis with severe mucus impaction. Bronchoscopy was done on 03/22/2017. The patient was discharged home on tapering dose of prednisone and antibiotics. The culture of the bronchial washing of the patient noted negative for any abnormal bacterial growth. The patient stated she has developed increased symptoms of shortness of breath in the last couple of days, which has been noted to gradually worsen. She was also noted with symptoms of coughing, which was noted only mild at that time. There was no sputum expectoration. General weakness and fatigue was reported by the patient. Denied symptoms of hemoptysis. She came into the Emergency Room. As the patient was assessed, the patient was noted with lactic acidosis and hypotension. She was given intravenous fluid, later started vasopressor that has been continued for the patient from yesterday. The patient was still noted symptoms of shortness of breath that has been noted with partial improvement. She denied any symptoms of chest pain. Denied symptoms of hemoptysis. REVIEW OF SYSTEMS: CONSTITUTIONAL: Fatigue and tiredness reported. Denies symptoms of fever or chills. EYES: Denies any burning, redness or tenderness. EARS, NOSE, THROAT: Denies any sore throat, hoarseness, otalgia, postnasal drainage or epistaxis. CARDIOVASCULAR: Denies anginal pain, calf edema or pain in the lower extremity. GASTROINTESTINAL: Denies dysphagia, nausea, vomiting, diarrhea, abdominal pain, hematemesis, melena or hematochezia. GENITOURINARY: No dysuria, suprapubic pain or hematuria. MUSCULOSKELETAL: No acute joint pain, redness or tenderness. SKIN: No lesions or rashes. CENTRAL NERVOUS SYSTEM: Overall general weakness without any focal deficit. There were no symptoms of seizures or tingling sensation of the extremities. Remaining systems were reviewed, they were noted all negative. PAST MEDICAL HISTORY: 1. Uncomplicated severe and persistent bronchial asthma. 2. Hypercholesterolemia. 3. Type 2 diabetes mellitus. 4. Essential hypertension. PAST SURGICAL HISTORY: 1. Left hip replacement. 2. Colonoscopy. 3. Cataract extraction with lens implantation. 4. Therapeutic bronchoscopy in 2016 and 03/22/2017. [place], [place] REPORT OF CONSULTATION NAME: NESHA DOUGHERTY UNIT #: [id number] ROOM: [facility] DOCTOR: LEEROY CHU MD BIRTHDATE: [birth year] SOCIAL HISTORY: The patient noted lifetime nonsmoker, , lives at home. Denies history of alcohol or any illicit drugs. FAMILY HISTORY: The patient's father at 60 years old from an accident. Mother at the age of 5050 years old from cancer of the bones. MEDICATIONS: The current administered medications for the patient were recorded as use of IV Protonix, Lovenox 40 mg for DVT prophylaxis, Tylenol, Levophed currently administered at 8 mcg/kg/min, Levaquin, vancomycin, meropenem, and other p.r.n. medications. DRUG ALLERGIES: NOTED NO KNOWN DRUG ALLERGIES. PHYSICAL EXAMINATION: GENERAL: A 77-year-old female, who has been noted currently awake and alert without any distress with mild tachypnea at rest. Height of 5 feet 9 inches, weight 192 pounds. VITAL SIGNS: For the patient, which was recorded shows the temperature noted as 99 degree Fahrenheit to normal temperature in the last 24 hours. Respiratory rate ranged between 18-22. The heart rate for the patient was noted as 94-92. The blood pressure for the patient that was noted with the lowest blood pressure of 86/26 and variable blood pressure noted. Blood pressure that was recorded this morning at 9 o' clock 125/52 and then later on as 151/66. The pulse oxygen saturation for the patient recorded on 3 liters nasal cannula was 99% saturation. HEENT: Showed head was atraumatic. Eyes nonicterus. Oral mucosa was moist. No lesions. NECK: Supple. CARDIOVASCULAR SYSTEM: S1, S2 audible. LUNGS: Noted moderate decreased breath sounds. There is no wheezing at this time or crackles heard. ABDOMEN: Soft, flat, nontender. Bowel sounds present. EXTREMITIES: No edema, clubbing or cyanosis. VISIBLE SKIN: No lesions or rashes. MUSCULOSKELETAL: Without any acute deformities. CENTRAL NERVOUS SYSTEM: Cranial nerves 2-12 intact. No focal deficit. LABORATORY DATA: On admission in the Emergency Room, CMP: Glucose 169, BUN normal, creatinine 1.09. Sodium 135, potassium 3.2. CBC for the patient of 03/30/2017 noted with WBC count elevated at 37.6, hemoglobin 11.9, hematocrit 34.7. CBC of the patient on of this month upon discharge, the patient was noted at that time with WBC count 15.2 and remaining CBC was normal. PT and PTT for this morning was noted as normal. CMP of this morning for the patient with BUN 22, creatinine 1.41, sodium 134. CBC of this morning, WBC count 34.5, hemoglobin 10.3, hematocrit 30.4, platelet count normal, 90% segmented neutrophils, 8% lymphocytes. Review of the radiology data: Chest x-ray of the patient that was done shows basilar infiltration, small, was considered for this patient. CT scan of chest, [place], [place] REPORT OF CONSULTATION NAME: NESHA DOUGHERTY UNIT #: [id number] ROOM: [facility] DOCTOR: BONNIE ANDRADE MD,[facility] BIRTHDATE: [birth year] abdomen and pelvis that was done yesterday in the Emergency Room was personally reviewed, shows consolidation noted in the lower portion of the lungs, greater on the left than the right side. Colonic diverticulosis noted without any radiologic evidence of acute diverticulitis. There were no findings of pleural fluid for the patient which was significant or any findings of congestive heart failure. IMPRESSION: 1. The patient has been currently noted with severe leukocytosis with severe acute sepsis related to current acute bilateral basilar pneumonia as the main etiology of sepsis. 2. The patient with acute kidney injury related to current acute sepsis as well. 3. History of bronchial asthma. The patient does not seem to have an acute exacerbation at the present time. 4. Severe leukocytosis secondary to current acute sepsis and pneumonia. PLAN OF MANAGEMENT: The patient's cultures have been taken yesterday, currently receiving intravenous vasopressors. She had fluid resuscitation therapy yesterday. The leukocytosis has been noted partially decreased. At this time, the patient will continue broad spectrum intravenous antibiotics, meropenem, Levaquin and vancomycin, for the current gram-positive, gram-negative organisms. Because of recent hospitalization, use of antibiotics is at high risk of resistant to infection with gram-positive organisms and gram-negative organisms. Monitor culture results for this patient. Vasopressor to maintain a mean arterial pressure of 65 or greater as tolerated. Continue oral nutritional support. Oxygen supplementation for management of any hypoxia if the oxygen saturation is noted less than 89%. Usual care. Look for other sources of infection for the patient as well, especially C. diff colitis, but the lack of GI symptoms makes the diagnosis less likely. All other supportive therapy, plan and management previously in progress will be continued. Usual care with additional treatment changes to be done for this patient based on progression of her illness. Monitoring the patient for respiratory status and hemodynamic to continue in the Intensive Care Unit. Total time in pulmonary critical evaluation and management of the patient's note is 35 minutes. LEEROY NICOLE MD CM:CONSTR:REPORT OF CONSULTATION 1104 04/01/17 0031 interface
--- NOTE | ~2017-03-30 | EKG ---
[place], [place] ELECTROCARDIOGRAM REPORT NAME: NESHA DOUGHERTY UNIT #: [id number] ROOM: [facility] DOCTOR: BONNIE ANDRADE MD,LEEROY BIRTHDATE: [birth year] DOS: 03/30/2017 Echocardiogram was done on 03/30/2017 at 12:00 p.m. Normal sinus rhythm noted. Heart rate of 98 beats per minute. The electrocardiogram was noted as normal. LEEROY NICOLE MD CM:EKGRPT:ELECTROCARDIOGRAM REPORT [id number] LEEROY ANDRADE MD
--- NOTE | ~2017-03-30 | PR ---
[place], [place] PROGRESS NOTE [id number] UN[facility] #: [id number] ROOM: 408 DOCTOR: BONNIE ANDRADE MD,LEEROY BIRTHDATE: [birth year] DOS: 04/03/2017 SUBJECTIVE: She has been noted reduction in shortness of breath in the last 24 hours, has been noted negative for fluid balance in the last 24 hours as well. Denies symptoms of chest pain or any acute hemoptysis. The cough has been noted present, but gradually decreased. Denies symptoms of edema or pain of the lower extremities. General weakness and fatigue were noted. There were no symptoms of headache or diplopia. Denies any acute joint pain. OBJECTIVE: VITAL SIGNS: The patient's heart rate was also noted in normal range as well with normal sinus rhythm. HEENT: The head was atraumatic. Eyes nonicterus. NECK: Supple. CARDIOVASCULAR: S1, S2 is audible. LUNGS: Noted with [id number] decreased breath sounds with minimal basilar crackles bilaterally. ABDOMEN: Soft, nontender. EXTREMITIES: Without any acute edema. MUSCULOSKELETAL SYSTEM: Without any deformity. SKIN: No lesions or rashes. CENTRAL NERVOUS SYSTEM: Intact. LABORATORY DATA: CBC today, WBC count 8.0, hemoglobin 9.1, hematocrit 27.5, platelet count was normal. The BMP of the patient this morning was noted as glucose of 203, BUN 11, creatinine normal. The chest x-ray of the patient, PA and lateral view was noted with resolving lower lobe infiltration. IMPRESSION: 1. Acute pneumonia, responding to treatment in the lower lungs with marked resolution and improvement of the leukocytosis. 2. Superimposed pulmonary venous congestion for the patient would be also considered. 3. Overall severe debility secondary to the current acute active pneumonia, which has been resolving gradually. PLAN OF TREATMENT: The patient could be transferred to the medical floor. The antibiotics are already adjusted. Continuation of meropenem as the only antibiotic, vancomycin discontinued by the Infectious disease specialist yesterday. Other supportive plan of management to be continued previously in progress with the usual care. A 40 mg of Lasix was ordered, one dose to help further decongestant the lung. BMP was ordered in the morning to assess electrolyte because of the current use of Lasix. [place], [place] PROGRESS NOTE NAME: NESHA DOUGHERTY UNIT #: [id number] ROOM: 408 DOCTOR: LEEROY CHU MD BIRTHDATE: [birth year] LEEROY NICOLE MD CM:TOMÁS [id number] LEEROY ANDRAED MD 04/04/17 0133 interface
--- NOTE | ~2017-03-30 | PR ---
[place], [place] PROGRESS NOTE NAME: NESHA DOUGHERTY UNIT #: [id number] ROOM: 408 DOCTOR: BONNIE ANDRADE MD,LEEROY BIRTHDATE: [birth year] DOS: 04/01/2017 SUBJECTIVE: The patient has been noted comfortable at this time except has developed this morning atrial fibrillation, rapid ventricular response with heart rate of 160-170 beats per minute. The patient has been noted with past history of atrial fibrillation, which has been managed with Cardizem CD. Shortness of breath has been noted to be decreased. Cough has been noted LEEROY NICOLE MD CM:TOMÁS [id number] LEEROY ANDRADE MD 04/07/17 1253 [email or web address] [email or web address]
[~2017-03-30 13:22] MED LIST changes: -LISINOPRIL20 MG PO; +OSTERA TABLET1 EACH PO; +PROAIR HFA8.5 GM INH; +TRAZODONE50 MG PO; +VIBRAMYCIN100 MG PO
[2017-03-30 14:34] LABS: ACT PARTIAL THROMBO TIME 20.6 SECONDS (20.8-31.5)
[2017-03-30 14:36] LABS: HEMATOCRIT 34.7 % (37.0-47.0); HEMOGLOBIN 11.9 g/dl (12.0-16.0); MEAN CELL VOLUME 87.6 fl (81.0-99.0); MEAN CORPUSCULAR HGB 30.1 pg (27.0-31.0); MEAN CORPUSCULAR HGB CONC 34.3 g/dl (33.0-37.0); MEAN PLATELET VOLUME 9.7 fl (9.6-12.3); NUCLEATED RED BLOOD CELL 0.1 % (0.0-0.0); PLATELET COUNT AUTOMATED 244 10*3/uL (130-400); RED BLOOD COUNT 3.96 10*6/uL (4.10-5.10); RED CELL DISTRI WIDTH 14.4 % (0-14.5)
[2017-03-30 14:40] LABS: ALBUMIN 3.4 gm/dl (3.1-4.5); ALKALINE PHOSPHATASE 77 U/L (45-117); BUN 22 mg/dl (7-24); CHLORIDE 100 mmol/L (98-107); CREATININE 1.09 mg/dL (0.55-1.02); POTASSIUM 3.2 mmol/L (3.5-5.1); SGOT/AST 6 IU/L (3-35); SGPT/ALT 23 U/L (12-78); SODIUM 135 mmol/L (136-145)
[2017-03-30 14:43] LABS: TROPONIN I < 0.015 ng/ml (<0.045)
[2017-03-30 14:52] LABS: TOTAL CELLS COUNTED 100 #CELLS
[2017-03-30 14:53] LABS: BURR CELLS FEW; PLATELET SUFFICIENCY NORMAL (NORMAL); POLYCHROMASIA SLIGHT; TOXIC GRANULATION SLIGHT
[2017-03-30 14:55] LABS: WHITE BLOOD COUNT 37.6 10*3/uL (4.8-10.8)
[2017-03-30 21:16] LABS: BILIRUBIN NEGATIVE (NEGATIVE); BLOOD NEGATIVE (NEGATIVE); CLARITY SL CLOUDY (CLEAR); COLOR YELLOW (YELLOW); GLUCOSE TRACE (NEGATIVE); KETONE TRACE (NEGATIVE); LEUKO ESTERASE 1+ (NEGATIVE); NITRITE NEGATIVE (NEGATIVE); UROBILINOGEN 0.2 E.U./dl (0.2-1.0)
[2017-03-30 21:31] LABS: RBC 0-2 rbc/hpf (0-2)
[2017-03-30 21:32] LABS: BACTERIA 2+; WBC 21-30 wbc/hpf (0-5)
[2017-03-31] VITALS (72 sets, daily range): BP systolic 91–151; BP diastolic 34–76
[2017-03-31 04:20] LABS: HEMATOCRIT 30.4 % (37.0-47.0); HEMOGLOBIN 10.3 g/dl (12.0-16.0); MEAN CELL VOLUME 88.9 fl (81.0-99.0); MEAN CORPUSCULAR HGB 30.1 pg (27.0-31.0); MEAN CORPUSCULAR HGB CONC 33.9 g/dl (33.0-37.0); MEAN PLATELET VOLUME 9.2 fl (9.6-12.3); PLATELET COUNT AUTOMATED 206 10*3/uL (130-400); RED BLOOD COUNT 3.42 10*6/uL (4.10-5.10); RED CELL DISTRI WIDTH 14.7 % (0-14.5); WHITE BLOOD COUNT 34.5 10*3/uL (4.8-10.8)
[2017-03-31 04:31] LABS: ACT PARTIAL THROMBO TIME 29.7 SECONDS (20.8-31.5); INTERNATIONAL NORM RATIO 1.1 (2.0-3.5)
[2017-03-31 04:47] LABS: ALBUMIN 2.6 gm/dl (3.1-4.5); CREATININE 1.41 mg/dL (0.55-1.02); PHOSPHOROUS 2.7 mg/dL (2.5-4.9); POTASSIUM 3.6 mmol/L (3.5-5.1); TOTAL PROTEIN 5.2 gm/dL (6.4-8.2)
[2017-03-31 05:36] LABS: BURR CELLS FEW; PLATELET SUFFICIENCY NORMAL (NORMAL); TOTAL CELLS COUNTED 100 #CELLS
[2017-04-01] VITALS (30 sets, daily range): BP systolic 82–132; BP diastolic 44–74
[2017-04-01 04:37] LABS: HEMATOCRIT 28.3 % (37.0-47.0); HEMOGLOBIN 9.5 g/dl (12.0-16.0); MEAN CELL VOLUME 88.7 fl (81.0-99.0); MEAN CORPUSCULAR HGB 29.8 pg (27.0-31.0); MEAN CORPUSCULAR HGB CONC 33.6 g/dl (33.0-37.0); MEAN PLATELET VOLUME 9.7 fl (9.6-12.3); PLATELET COUNT AUTOMATED 146 10*3/uL (130-400); RED BLOOD COUNT 3.19 10*6/uL (4.10-5.10); RED CELL DISTRI WIDTH 14.7 % (0-14.5); WHITE BLOOD COUNT 15.3 10*3/uL (4.8-10.8)
[2017-04-01 04:42] LABS: ALBUMIN 2.4 gm/dl (3.1-4.5); ALKALINE PHOSPHATASE 66 U/L (45-117); BUN 13 mg/dl (7-24); CHLORIDE 108 mmol/L (98-107); CREATININE 0.88 mg/dL (0.55-1.02); POTASSIUM 3.2 mmol/L (3.5-5.1); SGOT/AST 4 IU/L (3-35); SGPT/ALT 16 U/L (12-78); SODIUM 139 mmol/L (136-145); TOTAL PROTEIN 5.1 gm/dL (6.4-8.2)
[2017-04-01 04:48] LABS: PLATELET SUFFICIENCY NORMAL (NORMAL); TOTAL CELLS COUNTED 100 #CELLS
[2017-04-01 04:49] LABS: BURR CELLS FEW
[2017-04-02] VITALS: BP 102/37
[2017-04-02 04:00] VITALS: BP 148/67
[2017-04-02 05:44] LABS: BUN 11 mg/dl (7-24); CHLORIDE 108 mmol/L (98-107); CREATININE 0.72 mg/dL (0.55-1.02); POTASSIUM 3.3 mmol/L (3.5-5.1); SGOT/AST 7 IU/L (3-35); SGPT/ALT 14 U/L (12-78); SODIUM 139 mmol/L (136-145); TOTAL PROTEIN 4.7 gm/dL (6.4-8.2)
[2017-04-02 05:45] LABS: ALKALINE PHOSPHATASE 65 U/L (45-117)
[2017-04-02 05:46] LABS: BASO % 0.1 % (0.0-1.0); EOS # 0.1 10*3/uL (0.0-0.4); HEMATOCRIT 26.2 % (37.0-47.0); HEMOGLOBIN 8.4 g/dl (12.0-16.0); LYMPH # 0.5 10*3/uL (1.3-4.4); LYMPH % 4.7 % (27.0-41.0); MEAN CORPUSCULAR HGB 29.2 pg (27.0-31.0); MEAN CORPUSCULAR HGB CONC 32.1 g/dl (33.0-37.0); MONO # 0.5 10*3/uL (0.1-1.0); MONO % 5.5 % (3.0-9.0); NEUT # 8.5 10*3/uL (2.3-7.9); NEUT % 87.2 % (47.0-73.0); PLATELET COUNT AUTOMATED 124 10*3/uL (130-400); RED BLOOD COUNT 2.88 10*6/uL (4.10-5.10); RED CELL DISTRI WIDTH 14.7 % (0-14.5); WHITE BLOOD COUNT 9.7 10*3/uL (4.8-10.8)
[2017-04-02 08:00] VITALS: BP 122/72
[2017-04-02] MEDS ORDERED: VITAMIN D50000 UNIT PO (09:01)
[2017-04-02] MEDS ORDERED: GLYBURIDE5 MG PO (09:15)
[2017-04-02 12:00] VITALS: BP 120/70
[2017-04-02 15:21] VITALS: BP 158/74
[2017-04-02 20:00] VITALS: BP 158/69
[2017-04-03] VITALS: BP 151/76
[2017-04-03 04:00] VITALS: BP 139/58
[2017-04-03 05:53] LABS: BASO % 0.1 % (0.0-1.0); BUN 11 mg/dl (7-24); CHLORIDE 108 mmol/L (98-107); CREATININE 0.62 mg/dL (0.55-1.02); HEMATOCRIT 27.5 % (37.0-47.0); HEMOGLOBIN 9.1 g/dl (12.0-16.0); LYMPH # 0.3 10*3/uL (1.3-4.4); LYMPH % 3.6 % (27.0-41.0); MEAN CELL VOLUME 89.3 fl (81.0-99.0); MEAN CORPUSCULAR HGB 29.5 pg (27.0-31.0); MEAN CORPUSCULAR HGB CONC 33.1 g/dl (33.0-37.0); MEAN PLATELET VOLUME 10.2 fl (9.6-12.3); MONO # 0.4 10*3/uL (0.1-1.0); MONO % 5.1 % (3.0-9.0); NEUT # 7.2 10*3/uL (2.3-7.9); NEUT % 89.6 % (47.0-73.0); PLATELET COUNT AUTOMATED 132 10*3/uL (130-400); POTASSIUM 3.9 mmol/L (3.5-5.1); RED BLOOD COUNT 3.08 10*6/uL (4.10-5.10); RED CELL DISTRI WIDTH 14.4 % (0-14.5); SODIUM 140 mmol/L (136-145)
[2017-04-03 08:00] VITALS: BP 153/62
[2017-04-03 12:00] VITALS: BP 137/65
[2017-04-03 16:00] VITALS: BP 139/70
[2017-04-03 20:00] VITALS: BP 120/77
[2017-04-04] VITALS: BP 140/65
[2017-04-04 07:14] LABS: BUN 18 mg/dl (7-24); CHLORIDE 106 mmol/L (98-107); CREATININE 0.65 mg/dL (0.55-1.02); POTASSIUM 3.4 mmol/L (3.5-5.1); SODIUM 141 mmol/L (136-145)
[2017-04-04 08:00] VITALS: BP 142/65
[2017-04-04 12:00] VITALS: BP 148/66
[2017-04-04 16:00] VITALS: BP 144/53
[2017-04-04 20:00] VITALS: BP 151/66
[2017-04-05] VITALS: BP 153/67
[2017-04-05 04:00] VITALS: BP 153/70
[2017-04-05 06:52] LABS: BASO % 0.1 % (0.0-1.0); EOS % 0.6 % (1.0-4.0); HEMATOCRIT 27.7 % (37.0-47.0); HEMOGLOBIN 9.2 g/dl (12.0-16.0); LYMPH # 0.7 10*3/uL (1.3-4.4); LYMPH % 9.7 % (27.0-41.0); MEAN CELL VOLUME 88.8 fl (81.0-99.0); MEAN CORPUSCULAR HGB 29.5 pg (27.0-31.0); MEAN CORPUSCULAR HGB CONC 33.2 g/dl (33.0-37.0); MEAN PLATELET VOLUME 9.5 fl (9.6-12.3); MONO # 0.6 10*3/uL (0.1-1.0); MONO % 8.8 % (3.0-9.0); NEUT # 5.6 10*3/uL (2.3-7.9); NEUT % 78.6 % (47.0-73.0); PLATELET COUNT AUTOMATED 195 10*3/uL (130-400); RED BLOOD COUNT 3.12 10*6/uL (4.10-5.10); RED CELL DISTRI WIDTH 14.5 % (0-14.5); WHITE BLOOD COUNT 7.1 10*3/uL (4.8-10.8)
[2017-04-05 07:02] LABS: BUN 24 mg/dl (7-24); CHLORIDE 105 mmol/L (98-107); CREATININE 0.68 mg/dL (0.55-1.02); POTASSIUM 3.9 mmol/L (3.5-5.1); SODIUM 141 mmol/L (136-145)
[2017-04-05 08:00] VITALS: BP 152/74
[2017-04-05 12:00] VITALS: BP 144/67
[2017-04-05 20:00] VITALS: BP 141/60
[2017-04-06] VITALS: BP 139/51
[2017-04-06 06:56] LABS: BASO % 0.1 % (0.0-1.0); EOS % 0.5 % (1.0-4.0); HEMATOCRIT 30.1 % (37.0-47.0); HEMOGLOBIN 9.7 g/dl (12.0-16.0); LYMPH # 0.9 10*3/uL (1.3-4.4); LYMPH % 11.2 % (27.0-41.0); MEAN CELL VOLUME 89.3 fl (81.0-99.0); MEAN CORPUSCULAR HGB 28.8 pg (27.0-31.0); MEAN CORPUSCULAR HGB CONC 32.2 g/dl (33.0-37.0); MEAN PLATELET VOLUME 9.7 fl (9.6-12.3); MONO # 0.5 10*3/uL (0.1-1.0); NEUT # 5.8 10*3/uL (2.3-7.9); NEUT % 75.6 % (47.0-73.0); PLATELET COUNT AUTOMATED 251 10*3/uL (130-400); RED BLOOD COUNT 3.37 10*6/uL (4.10-5.10); RED CELL DISTRI WIDTH 14.3 % (0-14.5); WHITE BLOOD COUNT 7.7 10*3/uL (4.8-10.8)
[2017-04-06 07:06] LABS: BUN 24 mg/dl (7-24); CHLORIDE 103 mmol/L (98-107); CREATININE 0.68 mg/dL (0.55-1.02); POTASSIUM 4.3 mmol/L (3.5-5.1); SODIUM 140 mmol/L (136-145)
[2017-04-06 08:00] VITALS: BP 152/60
[2017-04-06 12:00] VITALS: BP 154/59
[2017-04-06 16:00] VITALS: BP 180/92
[2017-04-06] MEDS ORDERED: XARE20MG PO (16:28)
[2017-04-06] MEDS ORDERED: AUGMENTIN 875875 MG PO (16:35)
[2017-04-06] MEDS ORDERED: LASIX20 MG PO (16:35)
[2017-04-06] MEDS ORDERED: KLOR-CON SPRIN10 MEQ PO (16:35)
[2017-04-06 18:22] VITALS: BP 162/82
== END 2017-04-06 18:22 | disposition home or self-care (01) | DRG 871 ==
LOC: ED 13:22 → 4E 15:14 → ICCU 15:14 → EDHOLD 15:14 → ICCU 16:11 → 4E 04-03 13:40
PROVIDERS: Emergency Medicine; Family Medicine; Internal Medicine; Internal Medicine Critical Care Medicine; Student in an Organized Health Care Education/Training Program
PROC: B548ZZA Ultrasonography of Superior Vena Cava, Guidance (ICD-10-PCS; principal; 2017-03-30)
PROC: 02HV33Z Insertion of Infusion Device into Superior Vena Cava, Percutaneous Approach (ICD-10-PCS; principal; 2017-03-30)
DX: A41.9 Sepsis, unspecified organism (principal); R65.21 Severe sepsis with septic shock; N17.0 Acute kidney failure with tubular necrosis; E43 Unspecified severe protein-calorie malnutrition; J18.9 Pneumonia, unspecified organism; E87.2 Acidosis; D64.9 Anemia, unspecified; E11.9 Type 2 diabetes mellitus without complications; I48.0 Paroxysmal atrial fibrillation; J44.0 Chronic obstructive pulmonary disease with (acute) lower respiratory infection; E87.1 Hypo-osmolality and hyponatremia; J44.1 Chronic obstructive pulmonary disease with (acute) exacerbation; E87.6 Hypokalemia; I10 Essential (primary) hypertension; E78.5 Hyperlipidemia, unspecified; E66.3 Overweight; E55.9 Vitamin D deficiency, unspecified; E78.00 Pure hypercholesterolemia, unspecified; Z53.29 Procedure and treatment not carried out because of patient's decision for other reasons; Z96.642 Presence of left artificial hip joint; T50.2X5A Adverse effect of carbonic-anhydrase inhibitors, benzothiadiazides and other diuretics, initial encounter; J45.50 Severe persistent asthma, uncomplicated; Z96.1 Presence of intraocular lens; Y92.008 Other place in unspecified non-institutional (private) residence as the place of occurrence of the external cause; Z79.899 Other long term (current) drug therapy; Z98.42 Cataract extraction status, left eye; Z98.41 Cataract extraction status, right eye; Z83.3 Family history of diabetes mellitus; Z80.6 Family history of leukemia; Z68.28 Body mass index [BMI] 28.0-28.9, adult

== ENCOUNTER → 2017-04-17 | Outpatient (CLI) | payer MEDICARE, OTHER ==
[~2017-04-17] MED LIST changes: +AUGMENTIN 875875 MG PO; +GLYBURIDE5 MG PO; +KLOR-CON SPRIN10 MEQ PO; +LASIX20 MG PO; +VITAMIN D50000 UNIT PO; +XARE20MG PO
[2017-04-17 12:57] LABS: BUN 18 mg/dl (7-24); CHLORIDE 102 mmol/L (98-107); CREATININE 0.95 mg/dL (0.55-1.02); POTASSIUM 3.8 mmol/L (3.5-5.1); SODIUM 140 mmol/L (136-145)
== END | disposition home or self-care (01) ==
LOC: LAB 12:09
PROVIDERS: Emergency Medicine
DX: E87.6 Hypokalemia (principal)

== ENCOUNTER 2017-07-29 10:33 | Emergency (ER) | payer MEDICARE, OTHER ==
[2017-07-29] MEDS ORDERED: CEPHALEXIN500 M1 PO (10:46)
[2017-07-29] MEDS ORDERED: DOXYCYCLINE100 MG PO (10:46)
[2017-07-31] MEDS ORDERED: ZOFRAN ODT4 MG SL (12:54)
== END 2017-07-29 10:56 | disposition home or self-care (01) ==
LOC: ED 10:33
DX: L08.9 Local infection of the skin and subcutaneous tissue, unspecified (principal); B96.89 Other specified bacterial agents as the cause of diseases classified elsewhere; I10 Essential (primary) hypertension; E78.00 Pure hypercholesterolemia, unspecified; E11.9 Type 2 diabetes mellitus without complications; Z96.642 Presence of left artificial hip joint; Z98.890 Other specified postprocedural states; Z79.899 Other long term (current) drug therapy; Z79.01 Long term (current) use of anticoagulants

== ENCOUNTER → 2019-02-28 | Outpatient (CLI) | payer MEDICARE, OTHER ==
[~2019-02-28] MED LIST changes: +CEPHALEXIN500 M1 PO; +DOXYCYCLINE100 MG PO
[2019-02-28 11:31] LABS: BASO % 0.3 % (0.0-1.0); EOS # 0.1 10*3/uL (0.0-0.4); EOS % 0.9 % (1.0-4.0); HEMATOCRIT 37.3 % (37.0-47.0); HEMOGLOBIN 12.4 g/dl (12.0-16.0); LYMPH # 1.1 10*3/uL (1.3-4.4); LYMPH % 9.8 % (27.0-41.0); MEAN CELL VOLUME 90.3 fl (81.0-99.0); MEAN CORPUSCULAR HGB CONC 33.2 g/dl (33.0-37.0); MEAN PLATELET VOLUME 9.6 fl (9.6-12.3); MONO # 1.1 10*3/uL (0.1-1.0); MONO % 9.1 % (3.0-9.0); NEUT # 9.2 10*3/uL (2.3-7.9); NEUT % 78.4 % (47.0-73.0); PLATELET COUNT AUTOMATED 317 10*3/uL (130-400); RED BLOOD COUNT 4.13 10*6/uL (4.10-5.10); RED CELL DISTRI WIDTH 14.6 % (0-14.5); WHITE BLOOD COUNT 11.7 10*3/uL (4.8-10.8)
== END | disposition home or self-care (01) ==
LOC: LAB 11:09
PROVIDERS: Internal Medicine Critical Care Medicine
DX: Z79.899 Other long term (current) drug therapy (principal)

== ENCOUNTER 2019-03-12 09:39 | Inpatient (IN) | payer MEDICARE, OTHER ==
[2019-03-12] VITALS (7 sets, daily range): BP systolic 122–1225; BP diastolic 56–93
[~2019-03-12] VITALS: Ht 170.1 cm; Wt 77.1 kg
[2019-03-12 10:12] LABS: HEMATOCRIT 38.6 % (37.0-47.0); HEMOGLOBIN 12.6 g/dl (12.0-16.0); MEAN CELL VOLUME 91.7 fl (81.0-99.0); MEAN CORPUSCULAR HGB 29.9 pg (27.0-31.0); MEAN CORPUSCULAR HGB CONC 32.6 g/dl (33.0-37.0); MEAN PLATELET VOLUME 10.1 fl (9.6-12.3); PLATELET COUNT AUTOMATED 304 10*3/uL (130-400); RED BLOOD COUNT 4.21 10*6/uL (4.10-5.10); RED CELL DISTRI WIDTH 14.3 % (0-14.5); WHITE BLOOD COUNT 17.2 10*3/uL (4.8-10.8)
[2019-03-12 10:24] LABS: ACT PARTIAL THROMBO TIME 25.1 SECONDS (20.0-32.1); INTERNATIONAL NORM RATIO 0.9 (2.0-3.5)
[2019-03-12 10:29] LABS: ALBUMIN 3.6 gm/dl (3.1-4.5); ALKALINE PHOSPHATASE 111 U/L (45-117); BUN 29 mg/dl (7-24); CHLORIDE 107 mmol/L (98-107); CREATININE 1.25 mg/dL (0.55-1.02); POTASSIUM 3.7 mmol/L (3.5-5.1); SGOT/AST 7 IU/L (3-35); SGPT/ALT 21 U/L (12-78); SODIUM 135 mmol/L (136-145); TOTAL PROTEIN 6.4 gm/dL (6.4-8.2)
[2019-03-12 10:35] LABS: PLATELET SUFFICIENCY NORMAL (NORMAL); TOTAL CELLS COUNTED 100 #CELLS; TROPONIN I < 0.015 ng/ml (<0.045); VACUOLATION OF NEUTROPHILS SLIGHT
[2019-03-12 11:16] LABS: BILIRUBIN NEGATIVE (NEGATIVE); CLARITY SL CLOUDY (CLEAR); COLOR YELLOW (YELLOW); GLUCOSE 3+ (NEGATIVE)
[2019-03-12 11:17] LABS: BACTERIA TRACE; BLOOD NEGATIVE (NEGATIVE); EPITHELIAL CELLS 0-2; KETONE NEGATIVE (NEGATIVE); LEUKO ESTERASE NEGATIVE (NEGATIVE); MUCOUS 1+; NITRITE NEGATIVE (NEGATIVE); SPECIFIC GRAVITY 1.015 (1.005-1.030); UROBILINOGEN 0.2 E.U./dl (0.2-1.0); WBC 0-2 wbc/hpf (0-5)
[2019-03-12] MEDS ORDERED: ELIQUIS5 M1 PO (12:54)
[2019-03-12] MEDS ORDERED: COZAAR100 MG PO (12:55)
[2019-03-12] MEDS ORDERED: ALPRAZOLAM0.25 M1 PO (13:02)
[2019-03-13] VITALS: BP 101/43; BP 110/50
[2019-03-13 06:51] LABS: HEMATOCRIT 36.6 % (37.0-47.0); HEMOGLOBIN 11.5 g/dl (12.0-16.0); MEAN CELL VOLUME 92.2 fl (81.0-99.0); MEAN CORPUSCULAR HGB CONC 31.4 g/dl (33.0-37.0); MEAN PLATELET VOLUME 10.1 fl (9.6-12.3); PLATELET COUNT AUTOMATED 235 10*3/uL (130-400); RED BLOOD COUNT 3.97 10*6/uL (4.10-5.10); RED CELL DISTRI WIDTH 14.1 % (0-14.5); WHITE BLOOD COUNT 11.7 10*3/uL (4.8-10.8)
[2019-03-13 07:05] LABS: CREATININE 1.08 mg/dL (0.55-1.02); PHOSPHOROUS 4.1 mg/dL (2.5-4.9); POTASSIUM 4.3 mmol/L (3.5-5.1)
[2019-03-13 07:12] LABS: THYROID STIM HORMONE (HS) 0.679 uIU/ml (0.358-4.75)
[2019-03-13 07:20] LABS: TOTAL CELLS COUNTED 100 #CELLS
[2019-03-13 07:21] LABS: PLATELET SUFFICIENCY NORMAL (NORMAL)
[2019-03-13 08:00] VITALS: BP 140/69
[2019-03-13 12:00] VITALS: BP 153/80
[2019-03-13 16:00] VITALS: BP 146/65
[2019-03-13 20:00] VITALS: BP 149/59
[2019-03-14] VITALS (9 sets, daily range): BP systolic 95–135; BP diastolic 52–70
[2019-03-14 06:17] LABS: HEMATOCRIT 33.6 % (37.0-47.0); HEMOGLOBIN 11.1 g/dl (12.0-16.0); MEAN CELL VOLUME 89.4 fl (81.0-99.0); MEAN CORPUSCULAR HGB 29.5 pg (27.0-31.0); MEAN PLATELET VOLUME 10.2 fl (9.6-12.3); PLATELET COUNT AUTOMATED 239 10*3/uL (130-400); RED BLOOD COUNT 3.76 10*6/uL (4.10-5.10); RED CELL DISTRI WIDTH 14.2 % (0-14.5); WHITE BLOOD COUNT 17.2 10*3/uL (4.8-10.8)
[2019-03-14 06:27] LABS: BUN 24 mg/dl (7-24); CHLORIDE 106 mmol/L (98-107); SODIUM 135 mmol/L (136-145)
[2019-03-14 06:29] LABS: CREATININE 0.89 mg/dL (0.55-1.02)
[2019-03-14 07:01] LABS: PLATELET SUFFICIENCY NORMAL (NORMAL); TOTAL CELLS COUNTED 100 #CELLS; TOXIC GRANULATION SLIGHT
[2019-03-15] VITALS: BP 128/55
[2019-03-15 08:00] VITALS: BP 144/60
[2019-03-15] MEDS ORDERED: PREDNISONE20 M1 PO (09:13)
[2019-03-27 07:43] LABS: ACID FAST SPEC PROCESSING Concentration (.)
[2019-03-27 08:10] LABS: ORGANISM ID, MOLD Final report (.); RESULT 1 Penicillium species (.)
== END 2019-03-15 10:37 | disposition home or self-care (01) | DRG 205 ==
LOC: ED 09:39 → EDHOLD 11:46 → 4E 11:46 → EDHOLD 11:52 → 4E 12:14
PROVIDERS: Emergency Medicine; Internal Medicine Critical Care Medicine; Student in an Organized Health Care Education/Training Program; ADMIT Internal Medicine
PROC: 0B988ZZ Drainage of Left Upper Lobe Bronchus, Via Natural or Artificial Opening Endoscopic (ICD-10-PCS; principal; 2019-03-14)
PROC: 0B958ZZ Drainage of Right Middle Lobe Bronchus, Via Natural or Artificial Opening Endoscopic (ICD-10-PCS; principal; 2019-03-14)
PROC: 0B978ZZ Drainage of Left Main Bronchus, Via Natural or Artificial Opening Endoscopic (ICD-10-PCS; principal; 2019-03-14)
PROC: 0B918ZZ Drainage of Trachea, Via Natural or Artificial Opening Endoscopic (ICD-10-PCS; principal; 2019-03-14)
PROC: 0B9B8ZZ Drainage of Left Lower Lobe Bronchus, Via Natural or Artificial Opening Endoscopic (ICD-10-PCS; principal; 2019-03-14)
PROC: 0B968ZZ Drainage of Right Lower Lobe Bronchus, Via Natural or Artificial Opening Endoscopic (ICD-10-PCS; principal; 2019-03-14)
PROC: 0B948ZZ Drainage of Right Upper Lobe Bronchus, Via Natural or Artificial Opening Endoscopic (ICD-10-PCS; principal; 2019-03-14)
PROC: 0B998ZZ Drainage of Lingula Bronchus, Via Natural or Artificial Opening Endoscopic (ICD-10-PCS; principal; 2019-03-14)
PROC: 0B928ZZ Drainage of Carina, Via Natural or Artificial Opening Endoscopic (ICD-10-PCS; principal; 2019-03-14)
PROC: 0B938ZZ Drainage of Right Main Bronchus, Via Natural or Artificial Opening Endoscopic (ICD-10-PCS; principal; 2019-03-14)
DX: T17.590A Other foreign object in bronchus causing asphyxiation, initial encounter (principal); J18.9 Pneumonia, unspecified organism; N17.0 Acute kidney failure with tubular necrosis; J45.51 Severe persistent asthma with (acute) exacerbation; E87.2 Acidosis; I48.21 Permanent atrial fibrillation; X58.XXXA Exposure to other specified factors, initial encounter; I10 Essential (primary) hypertension; E78.5 Hyperlipidemia, unspecified; E11.65 Type 2 diabetes mellitus with hyperglycemia; J20.9 Acute bronchitis, unspecified; E78.00 Pure hypercholesterolemia, unspecified; Z96.1 Presence of intraocular lens; T38.0X5A Adverse effect of glucocorticoids and synthetic analogues, initial encounter; Z96.642 Presence of left artificial hip joint; Z79.01 Long term (current) use of anticoagulants; Z98.42 Cataract extraction status, left eye; Z98.41 Cataract extraction status, right eye; Z83.3 Family history of diabetes mellitus; Z80.6 Family history of leukemia; Y93.89 Activity, other specified; Z79.899 Other long term (current) drug therapy; Y92.89 Other specified places as the place of occurrence of the external cause

== ENCOUNTER 2021-06-29 13:02 | Inpatient (IN) | payer MEDICARE, OTHER ==
[2021-06-29] VITALS (19 sets, daily range): BP systolic 73–150; BP diastolic 40–82
[~2021-06-29] VITALS: Ht 175.3 cm; Wt 97.3 kg
[~2021-06-29 13:02] MED LIST changes: +ALPRAZOLAM0.25 M1 PO; +COZAAR100 MG PO; +DILTIAZEM 24HR180 MG PO; +HUMULIN 70100 UNIT/2 SQ; +PREDNISONE20 M1 PO; +PROPAFENONE HC150 MG PO; +VIBRA-TAB100 MG PO
[2021-06-29 13:50] LABS: HEMATOCRIT 35.4 % (37.0-47.0); MEAN CELL VOLUME 88.7 fl (81.0-99.0); MEAN CORPUSCULAR HGB 30.6 pg (27.0-31.0); MEAN CORPUSCULAR HGB CONC 34.5 g/dl (33.0-37.0); MEAN PLATELET VOLUME 9.9 fl (9.6-12.3); PLATELET COUNT AUTOMATED 204 10*3/uL (130-400); RED BLOOD COUNT 3.99 10*6/uL (4.10-5.10); WHITE BLOOD COUNT 24.6 10*3/uL (4.8-10.8)
[2021-06-29 13:51] LABS: MANUAL DIFF REFLEX YES
[2021-06-29 14:01] LABS: ACT PARTIAL THROMBO TIME 30.3 SECONDS (20.0-32.1); INTERNATIONAL NORM RATIO 1.1 (2.0-3.5)
[2021-06-29 14:08] LABS: CREATININE 1.13 mg/dL (0.55-1.02); POTASSIUM 3.7 mmol/L (3.5-5.1)
[2021-06-29 14:13] LABS: PLATELET SUFFICIENCY NORMAL (NORMAL); TOTAL CELLS COUNTED 100 #CELLS; TOXIC GRANULATION SLIGHT
[2021-06-29 15:36] LABS: BILIRUBIN Negative (Negative); BLOOD Negative (Negative); CLARITY Clear (Clear); COLOR Yellow (Yellow); GLUCOSE 3+ (Negative); KETONE 1+ (Negative); LEUKO ESTERASE Negative (Negative); NITRITE Negative (Negative); PH 6.5 (4.5-8.0); SPECIFIC GRAVITY 1.025 (1.001-1.030)
[2021-06-29 15:47] LABS: BACTERIA 3+
[2021-06-30] VITALS (17 sets, daily range): BP systolic 88–134; BP diastolic 44–64
[2021-06-30 04:51] LABS: BUN 19 mg/dl (7-24); CHLORIDE 101 mmol/L (98-107); SODIUM 130 mmol/L (136-145)
[2021-06-30 04:54] LABS: ALKALINE PHOSPHATASE 107 U/L (45-117); CREATININE 0.92 mg/dL (0.55-1.02); SGOT/AST 12 IU/L (3-35); SGPT/ALT 20 U/L (12-78); TOTAL PROTEIN 4.8 gm/dL (6.4-8.2)
[2021-06-30 06:09] LABS: BASO % 0.3 % (0.0-1.0); EOS % 0.1 % (1.0-4.0); HEMATOCRIT 29.7 % (37.0-47.0); LYMPH # 0.3 10*3/uL (1.3-4.4); MEAN CELL VOLUME 90.5 fl (81.0-99.0); MEAN CORPUSCULAR HGB 30.8 pg (27.0-31.0); MEAN PLATELET VOLUME 10.4 fl (9.6-12.3); MONO # 0.9 10*3/uL (0.1-1.0); MONO % 7.1 % (3.0-9.0); NEUT # 11.7 10*3/uL (2.3-7.9); NEUT % 88.3 % (47.0-73.0); PLATELET COUNT AUTOMATED 163 10*3/uL (130-400); RED BLOOD COUNT 3.28 10*6/uL (4.10-5.10); RED CELL DISTRI WIDTH 16.1 % (0-14.5); WHITE BLOOD COUNT 13.2 10*3/uL (4.8-10.8)
[2021-07-01] VITALS (13 sets, daily range): BP systolic 101–152; BP diastolic 39–78
[2021-07-01 05:37] LABS: BUN 20 mg/dl (7-24); CHLORIDE 103 mmol/L (98-107); CREATININE 0.75 mg/dL (0.55-1.02); POTASSIUM 3.2 mmol/L (3.5-5.1); SODIUM 132 mmol/L (136-145)
[2021-07-01 06:12] LABS: BASO % 0.2 % (0.0-1.0); EOS % 0.3 % (1.0-4.0); HEMATOCRIT 25.8 % (37.0-47.0); LYMPH # 0.4 10*3/uL (1.3-4.4); LYMPH % 3.8 % (27.0-41.0); MEAN CELL VOLUME 90.8 fl (81.0-99.0); MEAN CORPUSCULAR HGB 29.6 pg (27.0-31.0); MEAN CORPUSCULAR HGB CONC 32.6 g/dl (33.0-37.0); MEAN PLATELET VOLUME 10.2 fl (9.6-12.3); MONO # 0.8 10*3/uL (0.1-1.0); MONO % 8.5 % (3.0-9.0); NEUT # 8.1 10*3/uL (2.3-7.9); NEUT % 85.1 % (47.0-73.0); PLATELET COUNT AUTOMATED 156 10*3/uL (130-400); RED BLOOD COUNT 2.84 10*6/uL (4.10-5.10); RED CELL DISTRI WIDTH 16.3 % (0-14.5); WHITE BLOOD COUNT 9.6 10*3/uL (4.8-10.8)
[2021-07-02] VITALS: BP 121/59
[2021-07-02 04:00] VITALS: BP 130/57
[2021-07-02 04:58] LABS: BUN 17 mg/dl (7-24); CHLORIDE 106 mmol/L (98-107); CREATININE 0.77 mg/dL (0.55-1.02); POTASSIUM 3.4 mmol/L (3.5-5.1); SODIUM 134 mmol/L (136-145)
[2021-07-02 06:26] LABS: HEMATOCRIT 25.9 % (37.0-47.0); MEAN CELL VOLUME 92.8 fl (81.0-99.0); MEAN CORPUSCULAR HGB 30.8 pg (27.0-31.0); MEAN CORPUSCULAR HGB CONC 33.2 g/dl (33.0-37.0); MEAN PLATELET VOLUME 10.4 fl (9.6-12.3); PLATELET COUNT AUTOMATED 195 10*3/uL (130-400); RED BLOOD COUNT 2.79 10*6/uL (4.10-5.10); RED CELL DISTRI WIDTH 16.4 % (0-14.5); WHITE BLOOD COUNT 10.2 10*3/uL (4.8-10.8)
[2021-07-02 06:34] LABS: MANUAL DIFF REFLEX YES
[2021-07-02 07:40] LABS: TOTAL CELLS COUNTED 100 #CELLS; TOXIC GRANULATION SLIGHT
[2021-07-02 07:41] LABS: BURR CELLS MODERATE; PLATELET SUFFICIENCY NORMAL (NORMAL); SCHISTOCYTES FEW
[2021-07-02 08:00] VITALS: BP 139/67
[2021-07-02] MEDS ORDERED: XANAX0.25 MG PO (08:31)
[2021-07-02 12:00] VITALS: BP 145/73
[2021-07-02 16:00] VITALS: BP 164/74
[2021-07-02 20:00] VITALS: BP 116/55
[2021-07-03] VITALS: BP 116/47
[2021-07-03 04:00] VITALS: BP 144/48
[2021-07-03 05:22] LABS: BUN 17 mg/dl (7-24); CHLORIDE 105 mmol/L (98-107); CREATININE 0.68 mg/dL (0.55-1.02); POTASSIUM 4.2 mmol/L (3.5-5.1); SODIUM 133 mmol/L (136-145)
[2021-07-03 06:37] LABS: HEMATOCRIT 27.4 % (37.0-47.0); MEAN CELL VOLUME 91.9 fl (81.0-99.0); MEAN CORPUSCULAR HGB 30.5 pg (27.0-31.0); MEAN CORPUSCULAR HGB CONC 33.2 g/dl (33.0-37.0); MEAN PLATELET VOLUME 9.7 fl (9.6-12.3); RED BLOOD COUNT 2.98 10*6/uL (4.10-5.10); RED CELL DISTRI WIDTH 16.8 % (0-14.5); WHITE BLOOD COUNT 11.1 10*3/uL (4.8-10.8)
[2021-07-03 06:43] LABS: PLATELET COUNT AUTOMATED 271 10*3/uL (130-400)
[2021-07-03 06:44] LABS: MANUAL DIFF REFLEX YES
[2021-07-03 08:00] VITALS: BP 132/78
[2021-07-03 08:01] LABS: PLATELET SUFFICIENCY NORMAL (NORMAL); TOTAL CELLS COUNTED 100 #CELLS
[2021-07-03 12:00] VITALS: BP 103/77
[2021-07-03 16:00] VITALS: BP 141/64; BP 92/71
[2021-07-03 18:42] LABS: BILIRUBIN Negative (Negative); BLOOD 3+ (Negative); CLARITY Cloudy (Clear); COLOR Yellow (Yellow); GLUCOSE Negative (Negative); KETONE Trace (Negative); LEUKO ESTERASE Trace (Negative); NITRITE Negative (Negative); SPECIFIC GRAVITY 1.025 (1.001-1.030)
[2021-07-03 18:50] LABS: RBC 31-40 rbc/hpf (0-2)
[2021-07-03 18:51] LABS: BACTERIA 3+; COARSE GRANULAR CAST 0-2
[2021-07-03 20:00] VITALS: BP 95/51
[2021-07-04] VITALS: BP 100/60
[2021-07-04 04:00] VITALS: BP 159/50
[2021-07-04 06:08] LABS: HEMATOCRIT 28.1 % (37.0-47.0); MEAN CELL VOLUME 92.4 fl (81.0-99.0); MEAN CORPUSCULAR HGB 30.9 pg (27.0-31.0); MEAN CORPUSCULAR HGB CONC 33.5 g/dl (33.0-37.0); MEAN PLATELET VOLUME 9.6 fl (9.6-12.3); PLATELET COUNT AUTOMATED 316 10*3/uL (130-400); RED BLOOD COUNT 3.04 10*6/uL (4.10-5.10); RED CELL DISTRI WIDTH 16.8 % (0-14.5); WHITE BLOOD COUNT 10.4 10*3/uL (4.8-10.8)
[2021-07-04 06:17] LABS: BUN 16 mg/dl (7-24); CHLORIDE 106 mmol/L (98-107); CREATININE 0.58 mg/dL (0.55-1.02); POTASSIUM 4.2 mmol/L (3.5-5.1); SODIUM 135 mmol/L (136-145)
[2021-07-04 06:29] LABS: MANUAL DIFF REFLEX YES
[2021-07-04 06:46] LABS: BURR CELLS FEW; PLATELET SUFFICIENCY NORMAL (NORMAL); POLYCHROMASIA SLIGHT; TOTAL CELLS COUNTED 100 #CELLS
[2021-07-04 06:47] LABS: ROULEAUX SLIGHT; TOXIC GRANULATION SLIGHT
[2021-07-04 08:00] VITALS: BP 169/50
[2021-07-04 16:00] VITALS: BP 146/52; BP 157/69
[2021-07-04 20:00] VITALS: BP 139/71
[2021-07-05] VITALS: BP 108/44
[2021-07-05 06:05] LABS: BUN 13 mg/dl (7-24); CHLORIDE 107 mmol/L (98-107); CREATININE 0.55 mg/dL (0.55-1.02); POTASSIUM 3.7 mmol/L (3.5-5.1); SODIUM 136 mmol/L (136-145)
[2021-07-05 06:09] LABS: HEMATOCRIT 26.3 % (37.0-47.0); MEAN CELL VOLUME 93.3 fl (81.0-99.0); MEAN CORPUSCULAR HGB 30.5 pg (27.0-31.0); MEAN CORPUSCULAR HGB CONC 32.7 g/dl (33.0-37.0); MEAN PLATELET VOLUME 9.2 fl (9.6-12.3); PLATELET COUNT AUTOMATED 349 10*3/uL (130-400); RED BLOOD COUNT 2.82 10*6/uL (4.10-5.10); RED CELL DISTRI WIDTH 16.8 % (0-14.5); WHITE BLOOD COUNT 8.4 10*3/uL (4.8-10.8)
[2021-07-05 06:16] LABS: MANUAL DIFF REFLEX YES
[2021-07-05 06:49] LABS: POLYCHROMASIA SLIGHT; TOTAL CELLS COUNTED 100 #CELLS
[2021-07-05 06:50] LABS: OVALOCYTES FEW; PLATELET SUFFICIENCY NORMAL (NORMAL); TOXIC GRANULATION SLIGHT
[2021-07-05 08:00] VITALS: BP 132/49
[2021-07-05 12:00] VITALS: BP 145/69
[2021-07-05 16:00] VITALS: BP 143/59
[2021-07-05 20:00] VITALS: BP 134/70
[2021-07-06] VITALS: BP 128/69
[2021-07-06 05:36] LABS: BUN 14 mg/dl (7-24); CHLORIDE 108 mmol/L (98-107); CREATININE 0.55 mg/dL (0.55-1.02); POTASSIUM 3.7 mmol/L (3.5-5.1); SODIUM 139 mmol/L (136-145)
[2021-07-06 06:30] LABS: HEMATOCRIT 26.2 % (37.0-47.0); MEAN CELL VOLUME 93.6 fl (81.0-99.0); MEAN CORPUSCULAR HGB CONC 32.1 g/dl (33.0-37.0); MEAN PLATELET VOLUME 9.3 fl (9.6-12.3); PLATELET COUNT AUTOMATED 376 10*3/uL (130-400); RED CELL DISTRI WIDTH 16.7 % (0-14.5); WHITE BLOOD COUNT 7.3 10*3/uL (4.8-10.8)
[2021-07-06 06:47] LABS: MANUAL DIFF REFLEX YES
[2021-07-06 07:02] LABS: OVALOCYTES FEW; POLYCHROMASIA SLIGHT; ROULEAUX SLIGHT; TOTAL CELLS COUNTED 100 #CELLS; TOXIC GRANULATION SLIGHT
[2021-07-06 07:03] LABS: BURR CELLS FEW; PLATELET SUFFICIENCY NORMAL (NORMAL)
[2021-07-06 08:00] VITALS: BP 142/79
[2021-07-06 12:00] VITALS: BP 128/61
[2021-07-06 16:00] VITALS: BP 154/70
[2021-07-06 20:00] VITALS: BP 142/70
[2021-07-07] VITALS: BP 127/62
[2021-07-07 05:48] LABS: BUN 10 mg/dl (7-24); CHLORIDE 110 mmol/L (98-107); CREATININE 0.56 mg/dL (0.55-1.02); POTASSIUM 3.7 mmol/L (3.5-5.1); SODIUM 139 mmol/L (136-145)
[2021-07-07 06:13] LABS: HEMATOCRIT 27.6 % (37.0-47.0); MEAN CELL VOLUME 93.2 fl (81.0-99.0); MEAN CORPUSCULAR HGB 30.1 pg (27.0-31.0); MEAN CORPUSCULAR HGB CONC 32.2 g/dl (33.0-37.0); MEAN PLATELET VOLUME 8.8 fl (9.6-12.3); PLATELET COUNT AUTOMATED 424 10*3/uL (130-400); RED BLOOD COUNT 2.96 10*6/uL (4.10-5.10); RED CELL DISTRI WIDTH 16.5 % (0-14.5); WHITE BLOOD COUNT 7.4 10*3/uL (4.8-10.8)
[2021-07-07 06:14] LABS: MANUAL DIFF REFLEX YES
[2021-07-07 06:44] LABS: PLATELET SUFFICIENCY HIGH (NORMAL); POLYCHROMASIA SLIGHT; TOTAL CELLS COUNTED 100 #CELLS
[2021-07-07 06:45] LABS: BURR CELLS FEW; TOXIC GRANULATION SLIGHT
[2021-07-07 08:00] VITALS: BP 152/67
[2021-07-07 12:00] VITALS: BP 165/73
[2021-07-07 16:00] VITALS: BP 139/59
[2021-07-07 20:00] VITALS: BP 148/86
[2021-07-08] VITALS: BP 150/74
[2021-07-08 08:00] VITALS: BP 152/78
[2021-07-08] MEDS ORDERED: OXYCODONE-ACET1 EACH PO (11:26)
[2021-07-08] MEDS ORDERED: COZAAR50 M1 PO (11:26)
[2021-07-08] MEDS ORDERED: XANAX0.25 MG PO (11:26)
[2021-07-08] MEDS ORDERED: METFORMIN HYDR500 MG PO (11:26)
[2021-07-08] MEDS ORDERED: MUCINEX ER600 MG PO (11:26)
[2021-07-08] MEDS ORDERED: CEFTRIAXON2 GM/50 ML IV ×3 (11:27→11:29)
[2021-07-08 12:00] VITALS: BP 125/58
== END 2021-07-08 14:00 | DRG 871 ==
LOC: ED 13:02 → ICCU 16:59 → 4E 16:59 → EDHOLD 16:59 → ICCU 19:35 → 4E 07-04 16:17
PROVIDERS: Emergency Medicine; Family Medicine; Internal Medicine; ADMIT Internal Medicine; ATTEND Internal Medicine
PROC: 02HV33Z Insertion of Infusion Device into Superior Vena Cava, Percutaneous Approach (ICD-10-PCS; principal; 2021-06-29)
PROC: B548ZZA Ultrasonography of Superior Vena Cava, Guidance (ICD-10-PCS; 2021-06-29)
DX: A40.1 Sepsis due to streptococcus, group B (principal); J18.9 Pneumonia, unspecified organism; G93.41 Metabolic encephalopathy; N17.0 Acute kidney failure with tubular necrosis; E43 Unspecified severe protein-calorie malnutrition; E87.2 Acidosis; E87.1 Hypo-osmolality and hyponatremia; J98.11 Atelectasis; M48.56XA Collapsed vertebra, not elsewhere classified, lumbar region, initial encounter for fracture; I48.19 Other persistent atrial fibrillation; Z20.822 Contact with and (suspected) exposure to COVID-19; R65.20 Severe sepsis without septic shock; Z66 Do not resuscitate; E11.65 Type 2 diabetes mellitus with hyperglycemia; E87.8 Other disorders of electrolyte and fluid balance, not elsewhere classified; E78.5 Hyperlipidemia, unspecified; I10 Essential (primary) hypertension; Z96.642 Presence of left artificial hip joint; J45.909 Unspecified asthma, uncomplicated; Z79.51 Long term (current) use of inhaled steroids; Z68.28 Body mass index [BMI] 28.0-28.9, adult

== ENCOUNTER 2021-07-15 16:39 | Emergency (ER) | payer MEDICARE, OTHER ==
[~2021-07-15] VITALS: Ht 175.2 cm; Wt 94.1 kg
[~2021-07-15 16:39] MED LIST changes: +CEFTRIAXON2 GM/50 ML IV; +COZAAR50 M1 PO; +METFORMIN HYDR500 MG PO; +OXYCODONE-ACET1 EACH PO; +XANAX0.25 MG PO
[2021-07-15 17:54] LABS: HEMATOCRIT 25.7 % (37.0-47.0); MEAN CELL VOLUME 91.5 fl (81.0-99.0); MEAN CORPUSCULAR HGB 29.5 pg (27.0-31.0); MEAN CORPUSCULAR HGB CONC 32.3 g/dl (33.0-37.0); MEAN PLATELET VOLUME 8.8 fl (9.6-12.3); PLATELET COUNT AUTOMATED 676 10*3/uL (130-400); RED BLOOD COUNT 2.81 10*6/uL (4.10-5.10); RED CELL DISTRI WIDTH 16.7 % (0-14.5); WHITE BLOOD COUNT 7.1 10*3/uL (4.8-10.8)
[2021-07-15 17:57] LABS: MANUAL DIFF REFLEX YES
[2021-07-15 18:08] LABS: CREATININE 1.45 mg/dL (0.55-1.02); POTASSIUM 3.6 mmol/L (3.5-5.1); TOTAL PROTEIN 5.3 gm/dL (6.4-8.2)
[2021-07-15 18:23] LABS: PLATELET SUFFICIENCY HIGH (NORMAL); POLYCHROMASIA SLIGHT; TOTAL CELLS COUNTED 100 #CELLS
[2021-07-15 18:24] LABS: BURR CELLS FEW
[2021-07-22] MEDS ORDERED: REMERON15 M2 PO (23:41)
[2021-07-23] MEDS ORDERED: DULCOLAX STOOL100 MG PO (00:39)
[2021-07-23] MEDS ORDERED: LIDOCAINE PAIN1 EACH T (00:42)
[2021-07-23] MEDS ORDERED: MELATONIN3 MG PO (00:45)
[2021-07-23] MEDS ORDERED: MOM30 M1 PO (00:46)
== END 2021-07-15 21:57 ==
LOC: ED 16:39
PROVIDERS: Student in an Organized Health Care Education/Training Program
DX: R10.11 Right upper quadrant pain (principal); R11.2 Nausea with vomiting, unspecified; Z79.899 Other long term (current) drug therapy